=== PATIENT | male | born 1960 | race Caucasian/White ===

== ENCOUNTER 2017-07-02 15:21 | Observation (INO) | payer OTHER ==
[2017-07-02 16:00] LABS: Absolute Lymphocytes (CBC) 2.1 K/uL (0.7-4.9); Absolute Monocytes 1.5 K/uL (0.1-1.3); Absolute Neutrophil 11.3 K/uL (1.8-8.0); Basophils % 0.7 % (0-1.3); Eosinophils % 0.4 % (0-4.4); Hematocrit 44.9 % (39.6-49.0); Lymphocytes % 14.1 % (15.3-44.8); MCV 90.3 fL (80-100); MPV 9.2 fL (7.6-11.3); Monocytes % 10.1 % (3.3-12.3); RBC Red Blood Cell Count 4.97 M/uL (4.33-5.43)
[2017-07-02 16:05] LABS: Potassium 3.8 mEq/L (3.6-5.0)
[2017-07-02] MEDS ORDERED: NA CHLORIDE 0.9% 1,000 ML ONE (16:05)
[2017-07-02 16:08] LABS: Magnesium 1.7 mg/dL (1.8-2.5)
[2017-07-02 16:16] LABS: CKMB Creatine Kinase MB 2.8 ng/ml (0.3-4.0)
--- NOTE | 2017-07-02 16:29 | ER ---
Nurse's Notes [facility] Name: Chris Sweeney Age: 57 yrs Sex: Male : 1960 Arrival Date: 07/02/2017 Time: 15:23 Bed 18 Private MD: Donald Rosario Diagnosis: Dehydration;Acute kidney failure;Rhabdomyolysis Presentation: 07/02 15:27 Presenting complaint: Patient states: I have been doing a lot of yard work and I have la1 been trying to keep up with drinking water, I have been drinking 10-15 bottles of water a day but no sports drinks or anything, pt reports body cramps, vomiting. Transition of care: patient was not received from another setting of care. Onset of symptoms was July 02, 2017. Care prior to arrival: None. 15:27 Method Of Arrival: Wheelchair la1 15:27 Acuity: HOLLY 3 la1 Historical: - Allergies: 15:28 No Known Allergies; la1 - PMHx: 15:28 Diabetes - NIDDM; Hypertension; la1 - Immunization history:: Adult Immunizations up to date. - Social history:: Smoking status: Patient/guardian denies using tobacco. Screenin:48 Abuse screen: Denies threats or abuse. Denies injuries from another. Nutritional iw screening: No deficits noted. Tuberculosis screening: No symptoms or risk factors identified. Fall Risk IV access (20 points). Assessment: 15:50 General: Appears in no apparent distress. Behavior is calm, cooperative. Pain: iw Complains of pain in back Quality of pain is described as crampy. Neuro: Level of Consciousness is awake, alert, obeys commands, Oriented to person, place, time, situation, Moves all extremities. Full function. Cardiovascular: Capillary refill < 3 seconds in bilateral fingers Patient's skin is warm and dry. Rhythm is sinus tachycardia. Respiratory: Respiratory effort is even, unlabored, Respiratory pattern is regular, symmetrical. GI: Abdomen is non-distended, Reports vomiting. Derm: Skin is normal. Musculoskeletal: Range of motion: intact in all extremities. 16:50 Reassessment: Patient appears in no apparent distress at this time. Patient and/or em family updated on plan of care and expected duration. Pain level reassessed. Patient is alert, oriented x 3, equal unlabored respirations, skin warm/dry/pink. Patient states feeling better. Vital Signs: 15:29 BP 93 / 68; Pulse 117; Resp 19; Temp 98.2(TE); Pulse Ox 100% on R/A; Weight 120.2 kg; la1 Height 5 ft. 11 in. (180.34 cm); 15:52 BP 131 / 72; Pulse 100; Resp 18; Pulse Ox 97% on R/A; em 16:19 BP 113 / 71; Pulse 98; Resp 20; Pulse Ox 96% on R/A; em 17:16 BP 116 / 74; Pulse 94; Resp 18; Pulse Ox 99% on R/A; em 15:29 Body Mass Index 36.96 (120.20 kg, 180.34 cm) la1 ED Course: 15:23 Patient arrived in ED. as 15:24 [facility] is Private Physician. as 15:28 Triage completed. la1 15:29 Arm band placed on left wrist. la1 15:30 Greg Nair LVN is Primary Nurse. em 15:31 Alejandrina Bell FNP-C is PHCP. kb 15:31 Sukumar Cabrales MD is Attending Physician. kb 15:48 Initial lab(s) drawn, by me, sent to lab. Inserted saline lock: 20 gauge in right iw antecubital area, using aseptic technique. Blood collected. 15:48 EKG done, by ED staff, reviewed by Sukumar Cabrales MD. em1 15:57 Patient has correct armband on for positive identification. Bed in low position. Call em light in reach. Side rails up X2. 16:29 Shaw Henriquez MD is Hospitalizing Provider. kb 17:16 No provider procedures requiring assistance completed. Patient admitted, IV remains in em place. Administered Medications: 15:47 Drug: NS 0.9% 1000 ml Route: IV; Rate: 1000 ml; Site: right antecubital; iw 17:09 Follow up: IV Status: Completed infusion; IV Intake: 1000ml em 16:58 Drug: NS 0.9% 1000 ml Route: IV; Rate: 1000 ml; Site: right antecubital; em 17:09 Follow up: IV Status: Infusion continued upon admission em 16:59 Drug: Magnesium Sulfate 1 grams Route: IVPB; Infused Over: 1 hrs; Site: right em antecubital; 17:10 Follow up: IV Status: Infusion continued upon admission em 17:05 Drug: NS 0.9% 1000 ml Route: IV; Rate: 125 ml/hr; Site: right antecubital; em 17:09 Follow up: IV Status: Infusion continued upon admission em 17:06 Drug: Tylenol 1000 mg Route: PO; em 17:15 Follow up: Response: No adverse reaction em Intake: 17:09 IV: 1000ml; Total: 1000ml. em Outcome: 16:29 Decision to Hospitalize by Provider. kb 17:16 Admitted to Med/surg accompanied by tech, via wheelchair, room 213, with chart, Report em called to KEVAN Medley 17:16 Condition: good 17:16 Instructed on the need for admit, Demonstrated understanding of instructions. 17:18 Patient left the ED. em Signatures: Alejandrina Bell, PACKAGING TECHNICIAN-C PACKAGING TECHNICIAN-Ckb Greg Nair, [place] FSCM DEVELOPER [employer] FSCM DEVELOPER em Rody Hoffman as Spring Bassett RN RN Dalton, Markell em Jamil Varner RN RN la1 Corrections: (The following items were deleted from the chart) 15:52 15:50 GI: Abdomen is non-distended, iw
--- NOTE | 2017-07-02 16:29 | EDPHYS ---
Physician Documentation [facility] Name: Chris Sweeney Age: 57 yrs Sex: Male : 1960 Arrival Date: 07/02/2017 Time: 15:23 Bed 18 Private MD: Abraham, [facility] ED Physician Sukumar Cabrales HPI: 07/02 15:42 This 57 yrs old Male presents to ER via Wheelchair with complaints of Low kb Blood Pressure, Cramping. 15:42 The patient presents with dizziness, generalized weakness. Onset: The symptoms/episode kb began/occurred yesterday. Context: occurred at home, just prior to the episode the patient experienced no apparent symptoms. Modifying factors: The symptoms are alleviated by nothing, the symptoms are aggravated by nothing. Associated signs and symptoms: The patient has no apparent associated signs or symptoms. Severity of symptoms: At their worst the symptoms were moderate in the emergency department the symptoms are unchanged. Patient's baseline: Neuro: alert and fully oriented, Motor: no deficits, Ambulation: walks without assistance, Speech: normal. The patient has experienced similar episodes in the past, multiple times, and the symptoms today are exactly the same. The patient has not recently seen a physician. Pt c/o dizziness, low bp (81/41 with home device), muscle cramps, and nausea that started yesterday. States he has been working in the yard for the last couple of days and has been trying to keep up with fluids, but get dehydrated quickly. States this has happened multiple time and gets better with IV fluids. Decreased urination yesterday, despite drinking 10+ bottles of water. Has not been sweating much either. Took bp meds as prescribed this morning, including hctz/lisinopril. . Historical: - Allergies: 15:28 No Known Allergies; la1 - PMHx: 15:28 Diabetes - NIDDM; Hypertension; la1 - Immunization history:: Adult Immunizations up to date. - Social history:: Smoking status: Patient/guardian denies using tobacco. ROS: 15:38 Constitutional: Negative for fever, chills, and weight loss, Cardiovascular: Negative kb for chest pain, palpitations, and edema, Respiratory: Negative for shortness of breath, cough, wheezing, and pleuritic chest pain, Back: Negative for injury and pain, MS/Extremity: Negative for injury and deformity, Skin: Negative for injury, rash, and discoloration. 15:38 Abdomen/GI: Positive for nausea, Negative for abdominal pain, vomiting, diarrhea, constipation, abdominal cramps, abdominal distension, anorexia. 15:38 : Positive for decreased urination. 15:42 Neuro: Positive for dizziness. kb Exam: 15:38 Constitutional: This is a well developed, well nourished patient who is awake, alert, kb and in no acute distress. Head/Face: Normocephalic, atraumatic. ENT: Nares patent. No nasal discharge, no septal abnormalities noted. Tympanic membranes are normal and external auditory canals are clear. Oropharynx with no redness, swelling, or masses, exudates, or evidence of obstruction, uvula midline. Mucous membranes moist. Neck: Trachea midline, no thyromegaly or masses palpated, and no cervical lymphadenopathy. Supple, full range of motion without nuchal rigidity, or vertebral point tenderness. No Meningismus. Chest/axilla: Normal chest wall appearance and motion. Nontender with no deformity. No lesions are appreciated. Cardiovascular: Regular rate and rhythm with a normal S1 and S2. No gallops, murmurs, or rubs. Normal PMI, no JVD. No pulse deficits. Respiratory: Lungs have equal breath sounds bilaterally, clear to auscultation and percussion. No rales, rhonchi or wheezes noted. No increased work of breathing, no retractions or nasal flaring. Abdomen/GI: Soft, non-tender, with normal bowel sounds. No distension or tympany. No guarding or rebound. No evidence of tenderness throughout. Skin: Warm, dry with normal turgor. Normal color with no rashes, no lesions, and no evidence of cellulitis. MS/ Extremity: Pulses equal, no cyanosis. Neurovascular intact. Full, normal range of motion. Neuro: Awake and alert, GCS 15, oriented to person, place, time, and situation. Cranial nerves II-XII grossly intact. Motor strength 5/5 in all extremities. Sensory grossly intact. Cerebellar exam normal. Normal gait. Vital Signs: 15:29 BP 93 / 68; Pulse 117; Resp 19; Temp 98.2(TE); Pulse Ox 100% on R/A; Weight 120.2 kg; la1 Height 5 ft. 11 in. (180.34 cm); 15:52 BP 131 / 72; Pulse 100; Resp 18; Pulse Ox 97% on R/A; em 16:19 BP 113 / 71; Pulse 98; Resp 20; Pulse Ox 96% on R/A; em 17:16 BP 116 / 74; Pulse 94; Resp 18; Pulse Ox 99% on R/A; em 15:29 Body Mass Index 36.96 (120.20 kg, 180.34 cm) la1 MDM: 15:31 Patient medically screened. kb 15:38 Data reviewed: vital signs, nurses notes. Data interpreted: Pulse oximetry: on room air kb is 100 %. Interpretation: normal. 16:28 Counseling: I had a detailed discussion with the patient and/or guardian regarding: the kb historical points, exam findings, and any diagnostic results supporting the discharge/admit diagnosis, lab results, the need for further work-up and treatment in the hospital. Physician consultation: Shaw Henriquez MD was contacted at 16:28, regarding admission, to the telemetry unit. patient's condition, and will see patient in ED, shortly. 07/02 15:37 Order name: CBC with Diff; Complete Time: 16:06 kb 07/02 15:37 Order name: Basic Metabolic Panel; Complete Time: 16:21 kb 07/02 15:37 Order name: CPK; Complete Time: 16:21 kb 07/02 15:37 Order name: Ckmb; Complete Time: 16:21 kb 07/02 15:37 Order name: Magnesium; Complete Time: 16:21 kb 07/02 16:35 Order name: CBC with Automated Diff EDMS 07/02 16:35 Order name: CBC with Automated Diff EDMS 07/02 16:35 Order name: Comprehensive Metabolic Panel EDMS 07/02 16:35 Order name: Comprehensive Metabolic Panel EDMS 07/02 16:35 Order name: Creatine Phosphokinase EDMS 07/02 16:35 Order name: Creatine Phosphokinase EDMS 07/02 16:35 Order name: Creatine Phosphokinase EDMS 07/02 16:35 Order name: Creatine Phosphokinase EDMS 07/02 15:37 Order name: EKG; Complete Time: 15:37 kb 07/02 15:37 Order name: EKG - Nurse/Tech; Complete Time: 15:47 kb 07/02 15:37 Order name: Cardiac monitoring; Complete Time: 15:47 kb 07/02 15:37 Order name: IV Saline Lock; Complete Time: 15:47 kb 07/02 15:37 Order name: Labs collected and sent; Complete Time: 15:47 kb 07/02 15:37 Order name: O2 Per Protocol; Complete Time: 15:47 kb 07/02 15:37 Order name: O2 Sat Monitoring; Complete Time: 15:47 kb 07/02 15:37 Order name: Urine Dipstick-Ancillary (obtain specimen); Complete Time: 17:16 kb 07/02 16:35 Order name: CONS Physician Consult EDMS 07/02 16:35 Order name: Renal EDMS Administered Medications: 15:47 Drug: NS 0.9% 1000 ml Route: IV; Rate: 1000 ml; Site: right antecubital; iw 17:09 Follow up: IV Status: Completed infusion; IV Intake: 1000ml em 16:58 Drug: NS 0.9% 1000 ml Route: IV; Rate: 1000 ml; Site: right antecubital; em 17:09 Follow up: IV Status: Infusion continued upon admission em 16:59 Drug: Magnesium Sulfate 1 grams Route: IVPB; Infused Over: 1 hrs; Site: right em antecubital; 17:10 Follow up: IV Status: Infusion continued upon admission em 17:05 Drug: NS 0.9% 1000 ml Route: IV; Rate: 125 ml/hr; Site: right antecubital; em 17:09 Follow up: IV Status: Infusion continued upon admission em 17:06 Drug: Tylenol 1000 mg Route: PO; em 17:15 Follow up: Response: No adverse reaction em Disposition: 07/02/17 16:29 Hospitalization ordered by Shaw Henriquez for Observation. Preliminary diagnosis are Dehydration, Acute kidney failure, Rhabdomyolysis. - Bed requested for Telemetry/MedSurg (observation). - Status is Observation. em - Condition is Stable. - Problem is new. - Symptoms are unchanged. UTI on Admission? No Addendum: 08/05/2017 18:48 Co-signature as Attending Physician, Sukumar Cabrales MD I agree with the assessment and k dr plan of care. Signatures: Dispatcher [employer] EDIA Alejandrina Bell, CHIDI-C CHIDI-Sukumar Reyes MD MD [facility] Greg Nair, DOG LICENSE OFFICER SUPERVISOR DOG LICENSE OFFICER SUPERVISOR em Spring Bassett, KEVAN MATHUR iw Jamil Varner RN RN la1 Alexandrea Lipscomb RN RN df Corrections: (The following items were deleted from the chart) 07/02 15:42 15:38 Constitutional: Negative for fever, chills, and weight loss, Cardiovascular: kb Negative for chest pain, palpitations, and edema, Respiratory: Negative for shortness of breath, cough, wheezing, and pleuritic chest pain, Back: Negative for injury and pain, MS/Extremity: Negative for injury and deformity, Skin: Negative for injury, rash, and discoloration, Neuro: Negative for headache, weakness, numbness, tingling, and seizure, kb 17:00 16:29 Hospitalization Ordered by Shaw Henriquez MD for Observation. Preliminary diagnosis df is Dehydration; Acute kidney failure; Rhabdomyolysis. Bed requested for Telemetry/MedSurg (observation). Status is Observation. Condition is Stable. Problem is new. Symptoms are unchanged. UTI on Admission? No. kb 17:18 17:00 07/02/2017 16:29 Hospitalization Ordered by Shaw Henriquez MD for Observation. em Preliminary diagnosis is Dehydration; Acute kidney failure; Rhabdomyolysis. Bed requested for Telemetry/MedSurg (observation). Status is Observation. Condition is Stable. Problem is new. Symptoms are unchanged. UTI on Admission? No. df
[2017-07-02] MEDS ORDERED: ONDANSETRON 4 MG/2 ML VIAL IV PRN (16:30)
[2017-07-02] MEDS ORDERED: MAGNESIUM SULFATE 1 gm IVPB 1 GM/100 ML BAG IV ONE (17:05)
[2017-07-02] MEDS ORDERED: NA CHLORIDE 0.9% 2,000 ML ONE (17:05)
[2017-07-02] MEDS ORDERED: ACETAMINOPHEN 500 MG TAB ONE (17:16)
[2017-07-02] MEDS ORDERED: D50W 25 GM/50 ML SYRINGE IV PRN (17:20)
[2017-07-02] MEDS ORDERED: GLUCAGON 1 MG/VIAL IM PRN (17:20)
[2017-07-02] MEDS: D5W 1,000 ML with NA BICARB 8.4% 50 MEQ IV SCH ×2 (18:44)
[2017-07-02 18:56] LABS: Urine Appearance CLOUDY; Urine Bilirubin NEGATIVE (NEG); Urine Blood NEGATIVE (NEG); Urine Color YELLOW; Urine Glucose NEGATIVE (NEG); Urine Protein NEGATIVE (NEG); Urine Specific Gravity 1.015 (1.005-1.030); Urine Urobilinogen 0.2 mg/dL (0.2-1.0); Urine pH 5.5 (5.0-7.0)
[2017-07-02 18:57] LABS: Urine Microscopic Reflex NO UMIC
[2017-07-02] MEDS: INSULIN -REGULAR HUMAN 50 UNIT/0.5 ML ML SQ SCH (20:53)
[2017-07-02] MEDS: ACETAMINOPHEN 500 MG TAB PO PRN (20:55)
--- NOTE | 2017-07-02 22:11 | HP ---
Date of Admission: 07/02/2017 Chief Complaint: Dehydration. Primary Care Physician: ANTIONETTE. The patient also sees Dr. Moran. History Of Present Illness: The patient is a 57-year-old male with past medical history of diabetes, non-insulin dependent; hypertension; GERD; hyperlipidemia; who was in his usual state of health until a couple days prior to admission when the patient started working on his house outside in the heat. He has been aching and renovating. He states that he keep hydrated, however, in the past has had issues with dehydration. The patient has been drinking 10- 15 bottles per day of water. The patient started feeling muscle cramps and dehydration. He felt that his symptoms were similar to symptoms that he has had previously when he was in the and recognized his hydration, therefore came into the ER. His symptoms are constant, moderate, and progressively worsening. Upon arrival, his workup showed a creatinine of 2.43. His CPK level was 581. The patient was bolused with 2 L of IV normal saline and was referred for admission. When the patient was seen in the ER, he was awake, alert, oriented x3, in some mild distress. Past Medical History: Diabetes mellitus type 2, non-insulin dependent; hypertension; gastroesophageal reflux disease; diverticulitis, hyperlipidemia. Past Surgical History: Partial colon resection, vasectomy with reversal. Medications: Reviewed. Allergies: NO KNOWN DRUG ALLERGIES. Social History: The patient denies any tobacco use, illicit drug use. The patient does drink beer occasionally. The patient is a retired [employer] . Family History: Positive for coronary artery disease in both parents. Review of Systems: 11-point system reviewed, negative except as per HPI. Physical Examination: Vital Signs: Temperature 98.2, heart rate 117, blood pressure 93/68, respirations 19, O2 saturation 100% on room air. General: Awake, alert, oriented x3, in some mild distress. Somewhat ill- appearing male. HEENT: Normocephalic, atraumatic. PERRLA. EOMI. Dry mucous membranes. Oropharynx is clear. Regular dentition. Conjunctiva anicteric. Neck: Supple. No JVD. Trachea midline. CV: S1, S2. Sinus tachycardia. Peripheral pulses present bilaterally. No murmurs. Respiratory: Moving air well bilaterally. No wheezing. No stridor. No use of accessory muscles. Gastrointestinal: Abdomen is soft, nontender, nondistended. Positive bowel sounds. Extremities: No clubbing, cyanosis, or edema. No calf tenderness. Skin: No rashes. Normal skin turgor. Neurologic: Cranial nerves 2 through 12 intact grossly, 5/5 bilateral upper and lower extremity strength. Speech is normal. Sensation intact to light touch. Psych: Mood is okay. Affect is full. Insight and judgment are good. Laboratory Data: Sodium 133, potassium 3.8, chloride 95, CO2 25. BUN 23, creatinine 2.43, glucose 147, calcium 10.2, magnesium 1.7. CK 581. WBC 15.1, H and H 15.4 and 44.9, platelets 342, neutrophils 74%. Assessment And Plan: A 57-year-old male with; 1. Acute kidney injury. 2. Acute rhabdomyolysis. 3. Neutrophilic leukocytosis. 4. Hypomagnesemia. 5. Essential hypertension. 6. Diabetes mellitus type 2, non-insulin requiring. 7. Mixed hyperlipidemia. 8. History of diverticulitis, status post partial colon resection. 9. Acute dehydration. Continue with IV fluids. Plan: Admit the patient to Med-Surg, place as observation. We will place on IV fluids and monitor creatinine and replace magnesium. We will consult Nephrology. /MARY JO Voice ID: [id number] MTDD
[2017-07-03] MEDS: D5W 1,000 ML with NA BICARB 8.4% 50 MEQ IV SCH ×4 (02:11→11:22)
[2017-07-03 05:15] LABS: Absolute Lymphocytes (CBC) 2.6 K/uL (0.7-4.9); Absolute Monocytes 0.9 K/uL (0.1-1.3); Absolute Neutrophil 3.7 K/uL (1.8-8.0); Basophils % 0.6 % (0-1.3); Eosinophils % 2.8 % (0-4.4); Hematocrit 39.3 % (39.6-49.0); Lymphocytes % 34.3 % (15.3-44.8); MCH 31.6 pg (27.0-35.0); MCV 89.8 fL (80-100); MPV 9.2 fL (7.6-11.3); RBC Red Blood Cell Count 4.38 M/uL (4.33-5.43)
[2017-07-03 05:41] LABS: Albumin 3.6 g/dL (3.2-5.5); Bilirubin Total 1.1 mg/dL (0.3-1.2); Magnesium 1.8 mg/dL (1.8-2.5); Potassium 3.7 mEq/L (3.6-5.0)
--- NOTE | 2017-07-03 07:08 | EKG ---
Test Date: 2017-07-02 Test Time: 15:40:38 University Dean: NEIL MEASUREMENT RESULTS: Intervals: Rate: 103 VA: 130 QRSD: 88 QT: 348 QTc: 455 [place]: P: 67 VA: 130 QRS: 56 T: 67 INTERPRETIVE STATEMENTS: Sinus tachycardia Otherwise normal ECG Compared to ECG 10/06/2014 12:52:54 No significant changes Electronically Signed On 07-03-17 07:07:39 CDT by Eder Hewitt
[2017-07-03] MEDS: INSULIN -REGULAR HUMAN 50 UNIT/0.5 ML ML SQ SCH ×2 (07:30→11:23)
[2017-07-03] MEDS: ACETAMINOPHEN 500 MG TAB PO PRN ×2 (07:59→11:53)
[2017-07-03] MEDS ORDERED: ASPIRIN 81 MG CHEWABLE TABLET PO SCH (09:00)
[2017-07-03] MEDS ORDERED: SERTRALINE HCL 50 MG TAB PO SCH (09:00)
[2017-07-03] MEDS ORDERED: NA CHLORIDE 0.9% 1,000 ML IV SCH (13:00)
--- NOTE | 2017-07-03 15:49 | P.CNS ---
Date of Consult: 07/03/17 Reason for Consult: FINA Requesting Physician: Shaw Henriquez Chief Complaint: Malaise History of Present Illness: History Of Present Illness: The patient is a 57-year-old male with past medical history of diabetes, non-insulin dependent; hypertension; GERD; hyperlipidemia; who was in his usual state of health until a couple days prior to admission when the patient started working on his house outside in the heat. He has been aching and renovating. He states that he keep hydrated, however, in the past has had issues with dehydration. The patient has been drinking 10- 15 bottles per day of water. The patient started feeling muscle cramps and dehydration. He felt that his symptoms were similar to symptoms that he has had previously when he was in the and recognized his hydration, therefore came into the ER. His symptoms are constant, moderate, and progressively worsening. Upon arrival, his workup showed a creatinine of 2.43. His CPK level was 581. The patient was bolused with 2 L of IV normal saline and was referred for admission. When the patient was seen in the ER, he was awake, alert, oriented x3, in some mild distress. 15:42 This 57 yrs old Male presents to ER via Wheelchair with complaints of Low kb Blood Pressure, Cramping. 15:42 The patient presents with dizziness, generalized weakness. Onset: The symptoms/episode kb began/occurred yesterday. Context: occurred at home, just prior to the episode the patient experienced no apparent symptoms. Modifying factors: The symptoms are alleviated by nothing, the symptoms are aggravated by nothing. Associated signs and symptoms: The patient has no apparent associated signs or symptoms. Severity of symptoms: At their worst the symptoms were moderate in the emergency department the symptoms are unchanged. Patient's baseline: Neuro: alert and fully oriented, Motor: no deficits, Ambulation: walks without assistance, Speech: normal. The patient has experienced similar episodes in the past, multiple times, and the symptoms today are exactly the same. The patient has not recently seen a physician. Pt c/o dizziness, low bp (81/41 with home device), muscle cramps, and nausea that started yesterday. States he has been working in the yard for the last couple of days and has been trying to keep up with fluids, but get dehydrated quickly. States this has happened multiple time and gets better with IV fluids. Decreased urination yesterday, despite drinking 10+ bottles of water. Has not been sweating much either. Took bp meds as prescribed this morning, including hctz/lisinopril. Allergies No Known Drug Allergies Allergy (Verified 07/02/17 17:42) Unknown Home medications list reviewed: Yes Home Medications: Aspirin 1 tab PO DAILY 07/02/17 Glipizide [Glipizide ER] 0.5 tab PO DAILY 07/02/17 Lisinopril/Hydrochlorothiazide [Zestoretic 20-25 mg Tablet] 1 tab PO DAILY 07/02 Metformin ER [Glucophage ER*] 1 tab PO DAILY 07/02/17 Multivitamin [Multivitamins] 1 cap PO DAILY 07/02/17 Omeprazole 1 tab PO DAILY 07/02/17 Sertraline [Zoloft*] 1 tab PO DAILY 07/02/17 - Past Medical/Surgical History Diabetic: Yes -: HTN -: NIDDM -: Barretts esophagus -: Partial Colon removal -: Vasectomy -: Vasectomy reversal x3 -: Sinus sx -: Hernia repair - Family History Father Medical History: Heart disease - Social History Smoking Status: Former smoker Alcohol use: Yes CD- Drugs: No Caffeine use: Yes Place of Residence: Home Review of Systems 10-point ROS is otherwise unremarkable General: Weakness, Malaise Musculoskeletal: Back Pain Physical Examination Temp Pulse Resp BP Pulse Ox 99.7 F 88 18 130/76 98 07/03/17 12:00 07/03/17 12:00 07/03/17 12:00 07/03/17 12:00 07/03/17 12:00 General: Alert, Oriented x3, Cooperative HEENT: Atraumatic, Mucous membr. moist/pink Neck: Supple Respiratory: Clear to auscultation bilaterally, Normal air movement Cardiovascular: No edema, Regular rate/rhythm, No rubs Gastrointestinal: Soft and benign, Non-distended, No guarding Musculoskeletal: No clubbing, No contractures Integumentary: No rashes, No cyanosis Neurological: Normal speech Laboratory Data (last 24 hrs) 07/02/17 15:40: Sodium 133 L, Potassium 3.8, BUN 23 H, Creatinine 2.43 H, Glucose 147 H, Magnesium 1.7 L 04/01/18 15:40: WBC 15.1 H, Hgb 15.4, Hct 44.9, Plt Count 342 Conclusions/Impression: A/ FINA/ CKD III in the setting of diuretics and excessive sweating, improving with IVF. Hyponatremia. DM II with CKD. Hypomagnesemia. Rhabdomyolysis. P/ Continue current POC and Medications. Change IVF to NS. Counseled regarding adequate electrolyte replacement in the setting of excessive diaphoresis. No NSAIDs. AM labs. Daily weight. Thank you kindly for the consultation. Case discussed with Dr. Henriquez. Possible discharge today; may restart home medications.
--- NOTE | 2017-07-04 02:49 | DS ---
Date of Discharge: 07/03/2017 Consultants: Shahab Philip DO, Nephrology. Admitting Diagnoses: 1.Acute kidney injury. 2.Rhabdomyolysis. 3.Acute dehydration. 4.Neutrophilic leukocytosis. 5.Hypomagnesemia. 6.Essential hypertension. 7.Diabetes mellitus type 2, non-insulin requiring. 8.Mixed hyperlipidemia. 9.History of diverticulitis, status post partial colon resection. Discharge Diagnoses: 1.Acute kidney injury, likely secondary to prerenal azotemia and rhabdomyolysis, improving. 2.Acute rhabdomyolysis. CK levels trending down. 3.Neutrophilic like leukocytosis, resolved. 4.Hypomagnesemia, replaced. 5.Essential hypertension, stable. 6.Diabetes mellitus type 2 with hyperglycemia without long-term use of insulin, stable. 7.Hyperlipidemia. 8.Acute dehydration, resolved. 9.History of diverticulitis, status post partial colon resection. Hospital Course: The patient is a 57-year-old male, who had been working outside, renovating his [employer] and became dehydrated. The patient was found to have rhabdomyolysis with elevated CPK and creatin ine levels. The patient was hydrated aggressively and his labs improved. His magnesium was replaced . Creatinine came down to 1.29. His CPK level improved to 388. White count normalized. The patien t's UA was negative. The patient was evaluated by Nephrology and was then cleared for discharge. Th e patient was tolerating his diet, ambulating well. He was instructed to remain indoors in a cool en vironment to avoid any excessive strenuous activity for the next few days and to put a hold on his ho use renovations, at least until the end of the week. The patient was understanding. at the bed side. The patient was then discharged home in a stable condition. Activity: No strenuous activity. May return to work. 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 Diet: Heart healthy. Followup: Follow up with primary care physician in 2-3 days. 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 Chago bradford, per his recommendation. Return to ER for worsening condition. Discharge Physical Examination: General: Awake, alert, oriented, no acute distress. CV: S1, S2. No murmurs. Respiratory: Moving air well bilaterally. Abdomen: Soft, nontender, nondistended. Positive bowel sounds. Extremities: No clubbing, cyanosis, or edema. Neurologic: Nonfocal. SA/MODL Voice ID: [id number] Report ID: [id number]
[2017-07-04] MEDS ORDERED: PANTOPRAZOLE 40MG TABLET PO SCH (06:30)
[2017-07-04] MEDS ORDERED: GLIPIZIDE S.A. 5 MG TAB PO SCH (08:00)
== END 2017-07-03 15:18 | disposition home or self-care (01) ==
LOC: ER 15:21 → ERHOLD 16:29 → 2ND 17:09
PROVIDERS: ADMIT Family Medicine; ATTEND Family Medicine
DX: E83.42 Hypomagnesemia; Z79.82 Long term (current) use of aspirin; D72.828 Other elevated white blood cell count; E86.0 Dehydration; E78.5 Hyperlipidemia, unspecified; K21.9 Gastro-esophageal reflux disease without esophagitis; M62.82 Rhabdomyolysis; N17.9 Acute kidney failure, unspecified; I10 Essential (primary) hypertension; E11.65 Type 2 diabetes mellitus with hyperglycemia; E87.1 Hypo-osmolality and hyponatremia
CPT/HCPCS: 36415; 80048; 80053; 81003; 82550 ×2; 82553; 82962 ×3; 83735 ×2; 85025 ×2; 93005; 94760; 96361; 96374; 99285; G0378 ×2; J3475; J7030 ×3

== ENCOUNTER 2017-08-18 18:50 | Emergency (ER) | payer OTHER ==
[2017-08-18] MEDS ORDERED: LIDOCAINE 1% 20 ML MDV ONE (20:47)
--- NOTE | 2017-08-18 20:52 | RAD REPORT ---
EXAM DESCRIPTION: RAD - Hand Left 3 View - 08/18/2017 8:37 pm CLINICAL HISTORY: Laceration to third digit. COMPARISON: None. FINDINGS: Laceration is noted involving the third digit. No fracture or foreign body seen.
--- NOTE | 2017-08-18 21:24 | ER ---
Nurse's Notes [facility] Name: Chris Sweeney Age: 57 yrs Sex: Male : 1960 Arrival Date: 08/18/2017 Time: 18:52 Bed Treatment Private MD: Diagnosis: Laceration without foreign body of left middle finger without damage to nail Presentation: 08/18 19:12 Presenting complaint: Patient states: "I stepped on a strip of mariela clippings and lk1 jumped with a hedge clipper in my hand and cut my finger (left middle finger).". Transition of care: patient was not received from another setting of care. Onset of symptoms was August 18, 2017 at 17:30. Initial Sepsis Screen: Does the patient meet any 2 criteria? No. Patient's initial sepsis screen is negative. Does the patient have a suspected source of infection? No. Patient's initial sepsis screen is negative. Care prior to arrival: None. 19:12 Method Of Arrival: Ambulatory lk1 19:12 Acuity: HOLLY 4 lk1 Triage Assessment: 19:16 General: Appears in no apparent distress. Behavior is calm, cooperative, appropriate lk1 for age. Pain: Complains of pain in right hand Pain currently is 3 out of 10 on a pain scale. Historical: - Allergies: 19:16 No Known Drug Allergies; lk1 - PMHx: 19:16 Diabetes - NIDDM; Hypertension; Renal Disease; lk1 - PSHx: 19:16 Vasectomy; colon resection; Hernia repair; lk1 - Immunization history:: Adult Immunizations up to date, Last tetanus immunization: up to date. - Social history:: Smoking status: Patient/guardian denies using tobacco. Screenin:47 Abuse screen: Denies threats or abuse. Denies injuries from another. Nutritional aj1 screening: No deficits noted. Tuberculosis screening: No symptoms or risk factors identified. 21:51 Fall Risk None identified. aj1 Assessment: 19:47 General: Appears in no apparent distress. uncomfortable, Behavior is calm, cooperative, aj1 appropriate for age. Pain: Complains of pain in right hand. Neuro: Level of Consciousness is awake, alert, obeys commands, Oriented to person, place, time, situation, Speech is normal, Facial symmetry appears normal. Cardiovascular: Patient's skin is warm and dry. Respiratory: Airway is patent Respiratory effort is even, unlabored, Respiratory pattern is regular, symmetrical. GI: No signs and/or symptoms were reported involving the gastrointestinal system. : No signs and/or symptoms were reported regarding the genitourinary system. EENT: No signs and/or symptoms were reported regarding the EENT system. Derm: Skin is pink, warm \\T\\ dry. normal. Musculoskeletal: Range of motion: intact in all extremities. Injury Description: Laceration sustained to palmar aspect of distal phalanx of right little finger, palmar aspect of proximal phalanx of right little finger, palmar aspect of distal phalanx of right ring finger, palmar aspect of proximal phalanx of right ring finger, palmar aspect of distal phalanx of right middle finger, palmar aspect of proximal phalanx of right middle finger, palmar aspect of distal phalanx of right index finger and palmar aspect of proxima; phalanx of right index finger is bleeding moderately. 20:35 Reassessment: Patient appears in no apparent distress at this time. No changes from aj1 previously documented assessment. Patient and/or family updated on plan of care and expected duration. Pain level reassessed. Patient is alert, oriented x 3, equal unlabored respirations, skin warm/dry/pink. 21:50 Reassessment: Patient appears in no apparent distress at this time. No changes from aj1 previously documented assessment. Patient and/or family updated on plan of care and expected duration. Pain level reassessed. Patient is alert, oriented x 3, equal unlabored respirations, skin warm/dry/pink. Vital Signs: 19:16 BP 132 / 82; Pulse 92; Resp 16; Temp 98.4(TE); Pulse Ox 98% on R/A; Weight 123.38 kg lk1 (R); Height 5 ft. 11 in. (180.34 cm) (R); Pain 3/10; 19:16 Body Mass Index 37.94 (123.38 kg, 180.34 cm) lk1 ED Course: 18:52 Patient arrived in ED. sb2 19:14 Triage completed. lk1 19:18 Arm band placed on right wrist. lk1 19:21 Jeanna Saldana, RN is Primary Nurse. aj1 19:47 Patient has correct armband on for positive identification. aj1 19:47 No provider procedures requiring assistance completed. aj1 20:11 Jose Lewis PA is PHCP. cp 20:11 Jose Garg MD is Attending Physician. cp 20:33 X-ray completed. Portable x-ray completed in exam room. Patient tolerated procedure bb2 well. 20:34 XRAY Hand LEFT 3 View In Process Unspecified. EDMS 20:35 Wound care: to laceration located on right hand was cleaned with Hibiclens, irrigated aj1 with normal saline, dressed with 4X4s, Patient tolerated well. 21:50 Patient did not have IV access during this emergency room visit. Wound care: to aj1 laceration was cleaned with soap and water, dressed with 4X4s, Patient tolerated well. Administered Medications: 21:00 Drug: Lidocaine (1 %) 10 ml {Note: by MYESHA Bah.} Volume: 20 ml; Route: Infiltration; aj1 21:49 Drug: KeFLEX 500 mg Route: PO; aj1 21:50 Follow up: Response: No adverse reaction aj1 Outcome: 21:23 Discharge ordered by MD. cp 21:51 Discharged to home ambulatory. aj1 21:51 Condition: good 21:51 Discharge instructions given to patient, Instructed on discharge instructions, follow up and referral plans. medication usage, Demonstrated understanding of instructions, follow-up care, medications, Prescriptions given X 1. 21:52 Patient left the ED. aj1 Signatures: Dispatcher [employer] EDMS Jeanna Saldana, RN RN aj1 Jose Lewis PA PA cp Kluge, Leah RN RN lk1 Sandra Serra bb2 Jasmyne Haque sb2
--- NOTE | 2017-08-18 21:24 | EDPHYS ---
Physician Documentation [facility] Name: Chris Sweeney Age: 57 yrs Sex: Male : 1960 Arrival Date: 08/18/2017 Time: 18:52 Bed Treatment Private MD: ED Jose Angel HPI: 08/18 20:25 This 57 yrs old Male presents to ER via Ambulatory with complaints of LAC TO cp FINGER. Historical: - Allergies: 19:16 No Known Drug Allergies; lk1 - PMHx: 19:16 Diabetes - NIDDM; Hypertension; Renal Disease; lk1 - PSHx: 19:16 Vasectomy; colon resection; Hernia repair; lk1 - Immunization history:: Adult Immunizations up to date, Last tetanus immunization: up to date. - Social history:: Smoking status: Patient/guardian denies using tobacco. ROS: 20:30 Constitutional: Negative for body aches, chills, fever, poor PO intake. cp 20:30 Eyes: Negative for injury, pain, redness, and discharge. cp 20:30 Cardiovascular: Negative for chest pain. 20:30 Respiratory: Negative for cough, shortness of breath, wheezing. 20:30 Skin: Positive for laceration(s), of the left hand. 20:30 All other systems are negative. Exam: 20:38 Constitutional: The patient appears in no acute distress, alert, awake, non-toxic, well cp developed, well nourished. 20:38 Head/Face: Normocephalic, atraumatic. cp 20:38 Eyes: Periorbital structures: appear normal, Conjunctiva: normal, no exudate, no injection, Sclera: no appreciated abnormality, Lids and lashes: appear normal, bilaterally. 20:38 ENT: External ear(s): are unremarkable, Nose: is normal, Mouth: is normal, Posterior pharynx: is normal, airway is patent, no erythema, no exudate. 20:38 Cardiovascular: Rate: normal, Rhythm: regular. 20:38 Respiratory: the patient does not display signs of respiratory distress, Respirations: normal, no use of accessory muscles, no retractions, no splinting, no tachypnea, labored breathing, is not present. 20:38 Abdomen/GI: Exam negative for discomfort, distension, guarding, Inspection: abdomen appears normal. 20:38 Skin: injury, laceration(s), the wound is approximately 2 cm(s), of the henry side cp distal phalanx left middle finger, that can be described as clean, no foreign body, irregular, with moderate bleeding. 20:38 Skin: injury, laceration(s), noted several smaller, more superficial lacerations to cp base of index and small fingers, with minimal bleeding noted. Vital Signs: 19:16 BP 132 / 82; Pulse 92; Resp 16; Temp 98.4(TE); Pulse Ox 98% on R/A; Weight 123.38 kg lk1 (R); Height 5 ft. 11 in. (180.34 cm) (R); Pain 3/10; 19:16 Body Mass Index 37.94 (123.38 kg, 180.34 cm) lk1 MDM: 20:11 Patient medically screened. 08/18 20:20 Order name: XRAY Hand LEFT 3 View; Complete Time: 21:21 08/18 21:21 Interpretation: Report reviewed. 08/18 20:20 Order name: Wound Care: please clean and irrigate wounds; Complete Time: 20:36 cp 08/18 20:46 Order name: Dressing - Wound; Complete Time: 21:49 08/18 20:46 Order name: Gloves, Sterile; Complete Time: 20:47 08/18 20:46 Order name: Setup Suture Tray; Complete Time: 20:47 cp 08/18 21:21 Order name: Wound dressing; Complete Time: 21:49 cp Administered Medications: 21:00 Drug: Lidocaine (1 %) 10 ml {Note: by MYESHA Bah.} Volume: 20 ml; Route: Infiltration; [facility] 21:49 Drug: KeFLEX 500 mg Route: PO; aj1 21:50 Follow up: Response: No adverse reaction aj1 Disposition: 08/18/17 21:23 Discharged to Home. Impression: Laceration without foreign body of left middle finger without damage to nail. - Condition is Stable. - Discharge Instructions: Laceration Care, Adult. - Prescriptions for Keflex 500 mg Oral Capsule - take 1 capsule by ORAL route every 8 hours for 10 days; 30 capsule. - Medication Reconciliation Form, Thank You Letter, Antibiotic Education, Prescription Opioid Use form. - Follow up: Private Physician; When: 7 - 10 days; Reason: Staple/Suture removal. - Problem is new. - Symptoms have improved. Addendum: 08/21/2017 07:41 Co-signature as Attending Physician, Jose Garg MD I agree with the assessment and c malik plan of care. Signatures: Dispatcher [employer] Jeanna Lei RN RN aj1 Jose Garg MD MD cha Page, Corey, PA PA Danae Hammonds, RN RN lk1 Corrections: (The following items were deleted from the chart) 08/18 21:52 21:23 08/18/2017 21:23 Discharged to Home. Impression: Laceration without foreign body aj1 of left middle finger without damage to nail. Condition is Stable. Forms are Medication Reconciliation Form, Thank You Letter, Antibiotic Education, Prescription Opioid Use. Follow up: Private Physician; When: 7 - 10 days; Reason: Staple/Suture removal. Problem is new. Symptoms have improved. cp
[2017-08-18] MEDS ORDERED: CEPHALEXIN 250 MG CAP ONE (21:29)
== END 2017-08-18 21:52 | disposition home or self-care (01) ==
LOC: ER 18:50
DX: S61.213A Laceration without foreign body of left middle finger without damage to nail, initial encounter (principal); W27.1XXA Contact with garden tool, initial encounter; Y93.89 Activity, other specified; Y92.9 Unspecified place or not applicable
CPT/HCPCS: 99284

== ENCOUNTER 2017-09-26 09:21 | Observation (INO) | payer OTHER ==
[2017-09-26] MEDS ORDERED: NA CHLORIDE 0.9% 1,000 ML ONE ×2 (09:46→10:39)
--- NOTE | 2017-09-26 10:06 | RAD REPORT ---
EXAM DESCRIPTION: CT - Stone Protocol - 09/26/2017 9:51 am CLINICAL HISTORY: Flank pain. FLANK PAIN COMPARISON: None TECHNIQUE: Axial images were obtained without oral or IV contrast. Lack of contrast limits solid org an and vascular assessment. The [id number] spans the entirety of the system partially obscuring uppermost abdomen and lung bases. Coronal reformatted images were obtained and reviewed. All CT scans are performed using dose optimization technique as appropriate and may include automated exposure control or mA/KV adjustment according to patient size. FINDINGS: The lower lung lucas are clear. Fatty liver is noted. No focal mass or biliary dilatation. Spleen is normal in size. The pancreas and adrenal glands are normal. No pathologic lymphadenopathy in the abdomen or pelvis. No urinary tract stones or obstructive uropathy. No bowel obstruction, free air, free fluid or abscess. Normal appendix noted.Postsurgical changes are present at the level of the sigmoid colon. Small fat containing umbilical hernia. No significant bony abnormality. IMPRESSION: No urinary tract stones or obstructive uropathy. Diffuse fatty liver.
[2017-09-26 10:22] LABS: Absolute Lymphocytes (CBC) 1.9 K/uL (0.7-4.9); Absolute Monocytes 0.8 K/uL (0.1-1.3); Absolute Neutrophil 3.1 K/uL (1.8-8.0); Basophils % 0.7 % (0-1.3); Eosinophils % 1.1 % (0-4.4); Lymphocytes % 32.6 % (15.3-44.8); MCH 31.5 pg (27.0-35.0); MCV 91.1 fL (80-100); MPV 8.9 fL (7.6-11.3); RBC Red Blood Cell Count 5.16 M/uL (4.33-5.43)
[2017-09-26 10:38] LABS: Albumin 3.6 g/dL (3.4-5.0); Bilirubin Direct 0.2 mg/dL (0-0.2); Bilirubin Total 0.8 mg/dL (0.2-1.0); Protein, Total 7.5 g/dL (6.4-8.2)
[2017-09-26 10:39] LABS: Potassium 2.6 mmol/L (3.5-5.1)
[2017-09-26] MEDS ORDERED: POTASSIUM 25 MEQ EFFERV TAB ONE (10:50)
[2017-09-26] MEDS ORDERED: NS KCL 20MEQ 1,000 ML IV ONE (10:50)
[2017-09-26] MEDS ORDERED: NA CHLORIDE 0.9% 100 ML with POTASSIUM CL 10 MEQ IV ONE ×2 (11:00)
--- NOTE | 2017-09-26 11:57 | ER ---
Nurse's Notes [facility] Name: Chris Sweeney Age: 57 yrs Sex: Male : 1960 Arrival Date: 09/26/2017 Time: 09:24 Bed 5 Private MD: Richard Moran Diagnosis: Vomiting;Diarrhea, unspecified;Hypokalemia;Abdominal tenderness Presentation: 09/26 09:25 Presenting complaint: Patient states: diarrhea and vomiting since Monday, Immodium sv taken 2 days ago and has subsided since. Reports decreased appetite and drinking fluids now but wasn't urinating as much until yesterday and pt reports some blood tinged urine. Pt also reports chills on Mon and and losing 20 pounds since Monday. Transition of care: patient was not received from another setting of care. Onset of symptoms was September 20, 2017. Risk Assessment: Do you want to hurt yourself or someone else? Patient reports no desire to harm self or others. Care prior to arrival: None. 09:25 Method Of Arrival: Ambulatory sv 09:25 Acuity: HOLLY 3 sv Triage Assessment: :25 General: Appears in no apparent distress. uncomfortable, Behavior is calm, cooperative, sv appropriate for age. Pain: Complains of pain in abdomen Pain currently is 6 out of 10 on a pain scale. Pain began Monday. EENT: No signs and/or symptoms were reported regarding the EENT system. Neuro: Level of Consciousness is awake, alert, obeys commands, Oriented to person, place, time, situation, Moves all extremities. Gait is steady. Respiratory: Respiratory effort is even, unlabored, Respiratory pattern is regular, symmetrical. GI: Reports lower abdominal pain, intolerance of food, tolerance of fluids, vomiting. : Reports discharge, blood tinged yesterday. Derm: Skin is normal. Musculoskeletal: No signs and/or symptoms reported regarding the musculoskeletal system. Historical: - Allergies: :42 No Known Allergies; sv - Home Meds: :42 Protonix 40 mg Oral TbEC 1 tab once daily [Active]; hyoscyamine sulfate 0.125 mg SL sv subl QID prn [Active]; aspirin 81 mg Oral TbEC 1 tab once daily [Active]; Glipizide Oral [Active]; lisinopril-hydrochlorothiazide oral oral [Active]; metformin er [Active]; multivitamin oral oral [Active]; Omeprazole Oral [Active]; Zoloft Oral [Active]; - PMHx: 09:42 Diabetes - NIDDM; Hypertension; Renal Disease; sv - PSHx: 09:42 Vasectomy; colon resection; Hernia repair; sinus; sv - Immunization history:: Adult Immunizations up to date. - Social history:: Smoking status: Patient/guardian denies using tobacco, Patient uses alcohol. - Ebola Screening: : Patient negative for fever greater than or equal to 101.5 degrees Fahrenheit, and additional compatible Ebola Virus Disease symptoms Patient denies exposure to infectious person Patient denies travel to an Ebola-affected area in the 21 days before illness onset No symptoms or risks identified at this time. - Family history:: not pertinent. Screenin:00 Abuse screen: Denies threats or abuse. Denies injuries from another. Nutritional sg screening: No deficits noted. Tuberculosis screening: No symptoms or risk factors identified. Never had TB. Fall Risk None identified. Assessment: 10:00 General: Appears in no apparent distress. comfortable, well groomed, well developed, sg well nourished, Behavior is calm, cooperative, appropriate for age. Pain: Complains of pain in posterior aspect of right lateral abdomen and posterior aspect of left lateral abdomen and right lower quadrant and left upper quadrant. Neuro: Level of Consciousness is awake, alert, obeys commands, Oriented to person, place, time, situation, Speech is normal, Facial symmetry appears normal, Pupils are PERRLA. Cardiovascular: Heart tones S1 S2 present Capillary refill is brisk in bilateral fingers Patient's skin is warm and dry. Chest pain is denied. Respiratory: Airway is patent Respiratory effort is even, unlabored, Respiratory pattern is regular, symmetrical, Breath sounds are clear Denies cough, shortness of breath labored breathing, pain with respiration, pain with cough, pain with movement, air hunger. GI: Abdomen is round non-distended, obese, Bowel sounds present X 4 quads. : No signs and/or symptoms were reported regarding the genitourinary system. EENT: No signs and/or symptoms were reported regarding the EENT system. Derm: Skin is intact, is healthy with good turgor, Skin is dry, Skin is pale, Skin temperature is warm. Musculoskeletal: No signs and/or symptoms reported regarding the musculoskeletal system. Vital Signs: 09:25 BP 129 / 94; Pulse 105; Resp 20; Temp 96.2(TE); Pulse Ox 96% on R/A; Weight 115.67 kg; sv Height 5 ft. 11 in. (180.34 cm); Pain 6/10; 10:10 BP 126 / 82; Pulse 90; Resp 17 S; Pulse Ox 97% on R/A; sg 11:11 BP 135 / 89; Pulse 75; Resp 16 S; Pulse Ox 98% on R/A; Pain 4/10; sg 13:00 Temp 97.9; ss 13:06 BP 133 / 88; Pulse 76; Resp 18 S; Pulse Ox 100% on R/A; Pain 4/10; ss 09:25 Body Mass Index 35.57 (115.67 kg, 180.34 cm) sv ED Course: 09:24 Patient arrived in ED. rg4 09:24 Richard Moran MD is Private Physician. rg4 09:25 Patient placed in an exam room, on a stretcher. sv 09:27 Thaddeus Machado, KEVAN is Primary Nurse. sg 09:28 Arm band placed on. sg 09:36 Jose Garg MD is Attending Physician. aaron 09:40 Triage completed. sv 09:[address] vr 09:[address] via wheelchair. sw 09:47 CT completed. Patient tolerated procedure well. Patient moved back from CT. sw 09:52 CT Stone Protocol In Process Unspecified. EDMS 10:00 Patient has correct armband on for positive identification. Bed in low position. Call light in reach. Side rails up X2. panel monitor on. Pulse ox on. NIBP on. Warm blanket given. Head of bed elevated. 10:00 Initial lab(s) drawn, by nj, sent to lab. Inserted saline lock: 20 gauge in left sg antecubital area, using aseptic technique. Blood collected. 11:50 No provider procedures requiring assistance completed. Patient admitted, IV remains in ss place. intact, bleeding controlled, No redness/swelling at site. Pressure dressing applied. 11:56 Shaw Henriquez MD is Hospitalizing Provider. aaron Administered Medications: 10:06 Drug: NS 0.9% 1000 ml Route: IV; Rate: 1 bolus; Site: left antecubital; sg 10:39 Drug: NS 0.9% 1000 ml Route: IV; Rate: 1 bolus; Site: left antecubital; sg 10:54 Drug: Potassium Effervescent Tablet 25 mEq Route: PO; sg 11:40 Drug: Potassium Chloride 10 mEq Route: IV; Rate: per protocol; Site: left antecubital; sg 12:48 Follow up: IV Status: Completed infusion ss 11:50 Not Given (Duplicate Order): Potassium Chloride 10 mEq IV at per protocol once; aaron administer over 1-2 hours 13:03 Drug: NS 0.9% with KCl 20 mEq/L 1000 ml Route: IV; Rate: 125 ml/hr; Site: left ss antecubital; 13:03 Drug: Potassium Phosphate 15 mmol Route: IV; Rate: per protocol; Site: left antecubital; Outcome: 11:56 Decision to Hospitalize by Provider. [facility] 13:25 Patient left the ED. sg Signatures: Dispatcher [employer] EDLy Foster RN RN sv Gay, Steven, RN RN sg Anderson, Corey, MD MD cha Smirch, Shelby, RN RN ss Davis, Victoria vr Warren, Shannon sw Garcia, Rubi rg4 Corrections: (The following items were deleted from the chart) 09:43 09:42 BP 129 / 94; Pulse 105bpm; Resp 20bpm; Pulse Ox 96% RA; Temp 96.2F Temporal; sv 115.67 kg; Height 5 ft. 11 in.; BMI: 35.5; Pain 6/10; sv
--- NOTE | 2017-09-26 11:57 | EDPHYS ---
Physician Documentation [facility] Name: Chris Sweeney Age: 57 yrs Sex: Male : 1960 Arrival Date: 09/26/2017 Time: 09:24 Bed 5 Private MD: Richard Moran ED Physician Jose Garg HPI: 09/26 10:06 This 57 yrs old Male presents to ER via Ambulatory with complaints of aaron Diarrhea, Possible Kidney Stone. 10:06 The patient presents to the emergency department with nausea, vomiting, diarrhea, aaron abdominal pain, of the right upper quadrant, left upper quadrant, right lower quadrant and left lower quadrant. Onset: The symptoms/episode began/occurred 5 day(s) ago. Possible causes: unknown. The symptoms are aggravated by nothing. The symptoms are alleviated by nothing. Associated signs and symptoms: The patient has no apparent associated signs or symptoms. Severity of symptoms: At their worst the symptoms were. The patient has not experienced similar symptoms in the past. Historical: - Allergies: 09:42 No Known Allergies; sv - Home Meds: :42 Protonix 40 mg Oral TbEC 1 tab once daily [Active]; hyoscyamine sulfate 0.125 mg SL sv subl QID prn [Active]; aspirin 81 mg Oral TbEC 1 tab once daily [Active]; Glipizide Oral [Active]; lisinopril-hydrochlorothiazide oral oral [Active]; metformin er [Active]; multivitamin oral oral [Active]; Omeprazole Oral [Active]; Zoloft Oral [Active]; - PMHx: 09:42 Diabetes - NIDDM; Hypertension; Renal Disease; sv - PSHx: 09:42 Vasectomy; colon resection; Hernia repair; sinus; sv - Immunization history:: Adult Immunizations up to date. - Social history:: Smoking status: Patient/guardian denies using tobacco, Patient uses alcohol. - Ebola Screening: : Patient negative for fever greater than or equal to 101.5 degrees Fahrenheit, and additional compatible Ebola Virus Disease symptoms Patient denies exposure to infectious person Patient denies travel to an Ebola-affected area in the 21 days before illness onset No symptoms or risks identified at this time. - Family history:: not pertinent. ROS: 10:06 Constitutional: Negative for fever, chills, and weight loss, Eyes: Negative for injury, aaron pain, redness, and discharge, ENT: Negative for injury, pain, and discharge, Neck: Negative for injury, pain, and swelling, Cardiovascular: Negative for chest pain, palpitations, and edema, Respiratory: Negative for shortness of breath, cough, wheezing, and pleuritic chest pain, Back: Negative for injury and pain, : Negative for injury, bleeding, discharge, and swelling, MS/Extremity: Negative for injury and deformity, Skin: Negative for injury, rash, and discoloration, Neuro: Negative for headache, weakness, numbness, tingling, and seizure, Psych: Negative for depression, anxiety, suicide ideation, homicidal ideation, and hallucinations, Allergy/Immunology: Negative for hives, rash, and allergies, Endocrine: Negative for neck swelling, polydipsia, polyuria, polyphagia, and marked weight changes, Hematologic/Lymphatic: Negative for swollen nodes, abnormal bleeding, and unusual bruising. 10:06 Abdomen/GI: Positive for abdominal pain, nausea and vomiting, nausea, vomiting, and diarrhea, nausea, vomiting, diarrhea, abdominal cramps, of the posterior aspect of left lateral abdomen, posterior aspect of right lateral abdomen, right upper quadrant, left upper quadrant, right lower quadrant and left lower quadrant. 10:06 Abdomen/GI: Positive for Exam: 10:06 Constitutional: This is a well developed, well nourished patient who is awake, alert, aaron and in no acute distress. Head/Face: Normocephalic, atraumatic. Eyes: Pupils equal round and reactive to light, extra-ocular motions intact. Lids and lashes normal. Conjunctiva and sclera are non-icteric and not injected. Cornea within normal limits. Periorbital areas with no swelling, redness, or edema. ENT: Nares patent. No nasal discharge, no septal abnormalities noted. Tympanic membranes are normal and external auditory canals are clear. Oropharynx with no redness, swelling, or masses, exudates, or evidence of obstruction, uvula midline. Mucous membranes moist. Neck: Trachea midline, no thyromegaly or masses palpated, and no cervical lymphadenopathy. Supple, full range of motion without nuchal rigidity, or vertebral point tenderness. No Meningismus. Chest/axilla: Normal chest wall appearance and motion. Nontender with no deformity. No lesions are appreciated. Cardiovascular: Regular rate and rhythm with a normal S1 and S2. No gallops, murmurs, or rubs. Normal PMI, no JVD. No pulse deficits. Respiratory: Lungs have equal breath sounds bilaterally, clear to auscultation and percussion. No rales, rhonchi or wheezes noted. No increased work of breathing, no retractions or nasal flaring. Back: No spinal tenderness. No costovertebral tenderness. Full range of motion. Male : Normal genitalia with no discharge or lesions. Skin: Warm, dry with normal turgor. Normal color with no rashes, no lesions, and no evidence of cellulitis. MS/ Extremity: Pulses equal, no cyanosis. Neurovascular intact. Full, normal range of motion. Neuro: Awake and alert, GCS 15, oriented to person, place, time, and situation. Cranial nerves II-XII grossly intact. Motor strength 5/5 in all extremities. Sensory grossly intact. Cerebellar exam normal. Normal gait. Psych: Awake, alert, with orientation to person, place and time. Behavior, mood, and affect are within normal limits. 10:06 Abdomen/GI: Inspection: abdomen appears normal, Bowel sounds: normal, Palpation: mild abdominal tenderness, in the right upper quadrant, left upper quadrant, right lower quadrant and left lower quadrant. Vital Signs: 09:25 BP 129 / 94; Pulse 105; Resp 20; Temp 96.2(TE); Pulse Ox 96% on R/A; Weight 115.67 kg; sv Height 5 ft. 11 in. (180.34 cm); Pain 6/10; 10:10 BP 126 / 82; Pulse 90; Resp 17 S; Pulse Ox 97% on R/A; sg 11:11 BP 135 / 89; Pulse 75; Resp 16 S; Pulse Ox 98% on R/A; Pain 4/10; sg 13:00 Temp 97.9; ss 13:06 BP 133 / 88; Pulse 76; Resp 18 S; Pulse Ox 100% on R/A; Pain 4/10; ss 09:25 Body Mass Index 35.57 (115.67 kg, 180.34 cm) sv MDM: 09:36 Patient medically screened. [facility] 10:10 Data reviewed: vital signs, nurses notes, lab test result(s), radiologic studies, CT aaron scan. 09/26 09:39 Order name: Amylase, Serum; Complete Time: 10:43 [facility] 09/26 09:39 Order name: Basic Metabolic Panel; Complete Time: 10:43 [facility] 09/26 09:39 Order name: CBC with Diff; Complete Time: 10:43 [facility] 09/26 09:39 Order name: Creatinine for Radiology; Complete Time: 10:43 [facility] 09/26 09:39 Order name: Hepatic Function; Complete Time: 10:43 [facility] 09/26 09:39 Order name: Lipase; Complete Time: 10:43 [facility] 09/26 09:39 Order name: Urine Microscopic Only [facility] 09/26 09:39 Order name: CT Stone Protocol; Complete Time: 10:09 [facility] 09/26 09:39 Order name: Urine Culture [facility] 09/26 10:43 Order name: Phosphorus; Complete Time: 11:42 [facility] 09/26 13:00 Order name: Urine Dipstick--Ancillary (enter results) 09/26 13:09 Order name: Urine Dipstick-Ancillary [facility] 09/26 09:39 Order name: IV Saline Lock; Complete Time: 10:06 [facility] 09/26 09:39 Order name: Labs collected and sent; Complete Time: 10: [facility] 09/26 09:39 Order name: Urine Dipstick-Ancillary (obtain specimen); Complete Time: 13:10 [facility] Administered Medications: 10:06 Drug: NS 0.9% 1000 ml Route: IV; Rate: 1 bolus; Site: left antecubital; sg 10:39 Drug: NS 0.9% 1000 ml Route: IV; Rate: 1 bolus; Site: left antecubital; sg 10:54 Drug: Potassium Effervescent Tablet 25 mEq Route: PO; sg 11:40 Drug: Potassium Chloride 10 mEq Route: IV; Rate: per protocol; Site: left antecubital; sg 12:48 Follow up: IV Status: Completed infusion ss 11:50 Not Given (Duplicate Order): Potassium Chloride 10 mEq IV at per protocol once; [facility] administer over 1-2 hours 13:03 Drug: NS 0.9% with KCl 20 mEq/L 1000 ml Route: IV; Rate: 125 ml/hr; Site: left ss antecubital; 13:03 Drug: Potassium Phosphate 15 mmol Route: IV; Rate: per protocol; Site: left antecubital; Disposition: 09/26/17 11:56 Hospitalization ordered by Shaw Henriquez for Observation. Preliminary diagnosis are Vomiting, Diarrhea, unspecified, Hypokalemia, Abdominal tenderness. - Bed requested for Telemetry/MedSurg (observation). - Status is Observation. sg - Condition is Fair. - Problem is new. - Symptoms have improved. UTI on Admission? No Signatures: Dispatcher [employer] EDMS Ly Nguyen RN Elda Garrett RN RN dw Gay, Steven, RN RN sg Anderson, Corey, MD MD cha Smirch, Shelby, RN RN ss Corrections: (The following items were deleted from the chart) 12:58 11:56 Hospitalization Ordered by Shaw Henriquez MD for Observation. Preliminary diagnosis dw is Vomiting; Diarrhea, unspecified; Hypokalemia; Abdominal tenderness. Bed requested for Telemetry/MedSurg (observation). Status is Observation. Condition is Fair. Problem is new. Symptoms have improved. UTI on Admission? No. aaron 13:25 12:58 09/26/2017 11:56 Hospitalization Ordered by Shaw Henriquez MD for Observation. sg Preliminary diagnosis is Vomiting; Diarrhea, unspecified; Hypokalemia; Abdominal tenderness. Bed requested for Telemetry/MedSurg (observation). Status is Observation. Condition is Fair. Problem is new. Symptoms have improved. UTI on Admission? No. dw
[2017-09-26] MEDS ORDERED: POTASSIUM PHOS IN 0.9 % NACL 15 MMOL/250 ML BAG IV ONE (12:00)
[2017-09-26] MEDS ORDERED: ACETAMINOPHEN 500 MG TAB PO PRN (12:17)
[2017-09-26] MEDS: ONDANSETRON 4 MG/2 ML VIAL IV SCH ×3 (13:00→21:46)
[2017-09-26 13:09] LABS: Urine Blood NEGATIVE (NEG); Urine Glucose 2+ (NEG); Urine Protein NEGATIVE (NEG); Urine Specific Gravity 1.015 (1.005-1.030)
[2017-09-26 13:25] LABS: Urine Bacteria <20 /HPF (NONE SEEN); Urine Culture Reflex Order NOT NEEDED; Urine RBC <5 /HPF (NONE SEEN)
[2017-09-26 13:26] LABS: Urine Mucus 1+ /HPF (NONE SEEN)
[2017-09-26] MEDS ORDERED: HYDROCODONE/APAP 7.5/325 MG TAB PO PRN (13:48)
[2017-09-26] MEDS: CYCLOBENZAPRINE 10 MG TAB PO PRN ×2 (14:41→21:46)
[2017-09-26] MEDS ORDERED: GLUCAGON 1 MG/VIAL IM PRN (14:57)
[2017-09-26] MEDS ORDERED: D50W 25 GM/50 ML SYRINGE IV PRN (14:57)
[2017-09-26] MEDS: INSULIN -REGULAR HUMAN 50 UNIT/0.5 ML ML SQ SCH ×2 (16:30→21:47)
[2017-09-26] MEDS ORDERED: ENOXAPARIN 40 MG/0.4 ML SQ SCH (17:00)
[2017-09-26] MEDS: NA CHLORIDE 0.9% 1,000 ML IV SCH ×2 (18:38→23:00)
[2017-09-26 20:35] LABS: Magnesium 1.7 mg/dL (1.8-2.4)
[2017-09-26 20:39] LABS: Potassium 2.9 mmol/L (3.5-5.1)
[2017-09-26] MEDS ORDERED: MAGNESIUM SULFATE 1 gm IVPB 1 GM/100 ML BAG IV ONE (21:30)
[2017-09-26] MEDS: KCL 20 MEQ/100 mL IVPB 20 MEQ/100 ML BAG IV SCH (22:59)
[2017-09-27] MEDS: KCL 20 MEQ/100 mL IVPB 20 MEQ/100 ML BAG IV SCH ×2 (00:37→02:17)
[2017-09-27] MEDS: ONDANSETRON 4 MG/2 ML VIAL IV SCH ×4 (01:00→13:00)
--- NOTE | 2017-09-27 01:16 | HP ---
Date of Admission: 09/26/2017 Code Status: Full. Primary Care Physician: Richard Moran MD Chief Complaint: Abdominal pain, nausea, vomiting. History Of Present Illness: The patient is a 57-year-old male with past medical history of diabetes, hypertension, GERD, hyperlipidemia, diverticulitis, comes in with intractable nausea and vomiting an d diarrhea. The patient states that his symptoms are constant, moderate, progressively worsening. S tates that there were some ill contacts at his workplace with similar symptoms. The patient, however , denies any fevers, chills, or blood in the stool. He states that his symptoms have been ongoing fo r the past 72 hours. The patient unable to keep any p.o. intake. The patient denies any alleviating factors. The patient therefore came into the ER for further evaluation. Upon arrival, his vital si gns were stable. He was afebrile. His workup revealed multiple electrolyte abnormalities. White co unt was normal. He did report some flank pain. The CT scan of the abdomen was done, which did not s how any urinary tract stones or obstructive uropathy. The patient was referred for admission. When seen in the ER, he was awake, alert, oriented x3, in some mild distress. Past Medical History: Diabetes mellitus type 2 non-insulin dependent, hypertension, gastroesophageal reflux disease, diverticulitis, hyperlipidemia. Past Surgical History: Partial colon resection, hysterectomy with reversal. Allergies: NO KNOWN DRUG ALLERGIES. Medications: List reviewed. Social History: The patient denies any tobacco use or illicit drug use. The patient does drink beer occasionally. Retired [employer] . Family History: Positive for coronary artery disease in both parents. Review of Systems: An 11-point system reviewed, negative except as per HPI. Physical Examination: Vital Signs: Temperature 96.2, heart rate 105, blood pressure 129/94, respirations 20, O2 96% on yariel m air. General: Awake, alert, oriented x3, some mild distress due to pain, ill-appearing male. HEENT: Normocephalic, atraumatic. PERRLA. EOMI. Dry mucous membranes. Oropharynx is clear. Norm al dentition. Conjunctivae anicteric. Neck: Supple. No JVD. Trachea midline. CV: S1, S2. Sinus tachycardia. No murmurs. Regular rate and rhythm. Peripheral pulses are presen t. Respiratory: Clear to auscultation bilaterally. No wheezing. No stridor. No use of accessory musc les. Gastrointestinal: Abdomen is soft. Mild tenderness to palpation in the left lower quadrant. No immanuel ound, guarding, or rigidity. Bowel sounds positive. Extremities: No clubbing, cyanosis, or edema. No calf tenderness. Neuro: Cranial nerves 2 through 12 intact grossly. No focal neurological deficit. Speech is normal . 5/5 strength bilateral upper and lower extremities. Skin: No rashes. Normal skin turgor. Psych: Mood is okay. Affect is full. Insight and judgment are good. Laboratory Data: Sodium 138, potassium 2.6, chloride 92, CO2 27, BUN 16, creatinine 1.3, glucose of 74, calcium 8.8, phosphorus 2.4, AST 74, ALT 112. WBC 5.9, H and H 16.3 and 47, platelets 284, lipas e 309, amylase 61. UA is negative. CT scan of the abdomen and pelvis personally reviewed shows no u rinary tract stone or obstructive uropathy, diffuse fatty liver. Assessment And Plan: A 57-year-old male with: 1.Intractable nausea and vomiting may be secondary to viral versus bacterial gastroenteritis. Diffe rential diagnosis also includes diabetic gastroparesis. 2.Hypophosphatemia. We will replace and monitor. 3.Hypokalemia. We will replace and monitor secondary to above. 4.Hyponatremia. We will start on IV fluids and monitor sodium level. 5.Diarrhea. 6.Essential hypertension, stable. 7.Diabetes mellitus type 2, non-insulin requiring. We will continue with sliding scale insulin and Accu-Cheks. 8.Hyperlipidemia. 9.History of diverticulitis, status post partial colon resection. No small-bowel obstruction or ile us seen on CT. 10.Acute dehydration. We will continue IV fluid and supportive care. Plan: Ad[facility] the [facility] to [facility]. TYLER Voice ID: [id number]
[2017-09-27 05:03] LABS: Absolute Lymphocytes (CBC) 2.2 K/uL (0.7-4.9); Absolute Monocytes 0.6 K/uL (0.1-1.3); Absolute Neutrophil 1.7 K/uL (1.8-8.0); Basophils % 1.4 % (0-1.3); Eosinophils % 2.7 % (0-4.4); Hematocrit 39.3 % (39.6-49.0); Lymphocytes % 46.6 % (15.3-44.8); MCH 32.5 pg (27.0-35.0); MCV 90.3 fL (80-100); MPV 8.4 fL (7.6-11.3); Monocytes % 12.6 % (3.3-12.3); RBC Red Blood Cell Count 4.36 M/uL (4.33-5.43)
[2017-09-27 05:28] LABS: Bilirubin Total 0.7 mg/dL (0.2-1.0); Magnesium 1.8 mg/dL (1.8-2.4); Phosphorus 2.4 mg/dL (2.5-4.9); Potassium 3.3 mmol/L (3.5-5.1); Protein, Total 6.1 g/dL (6.4-8.2)
[2017-09-27] MEDS: NA CHLORIDE 0.9% 1,000 ML IV SCH ×2 (06:29→08:58)
[2017-09-27] MEDS ORDERED: MAGNESIUM SULFATE 1 gm IVPB 1 GM/100 ML BAG IV ONE (06:30)
[2017-09-27] MEDS: POTASS/SODIUM PHOSPHATE 1 PKT POWD.PACK PO SCH ×3 (06:30→08:53)
[2017-09-27] MEDS ORDERED: PANTOPRAZOLE 40MG TABLET PO SCH (07:30)
[2017-09-27] MEDS: INSULIN -REGULAR HUMAN 50 UNIT/0.5 ML ML SQ SCH ×2 (07:46→11:42)
[2017-09-27] MEDS ORDERED: KCL 20 MEQ/100 mL IVPB 20 MEQ/100 ML BAG IV SCH (08:00)
[2017-09-27] MEDS ORDERED: GLIPIZIDE S.A. 5 MG TAB PO SCH (08:00)
[2017-09-27] MEDS ORDERED: LISINOPRIL 20 MG TAB PO SCH (09:00)
[2017-09-27] MEDS ORDERED: ASPIRIN 81 MG CHEWABLE TABLET PO SCH (09:00)
[2017-09-27] MEDS ORDERED: SERTRALINE HCL 50 MG TAB PO SCH (09:00)
[2017-09-27] MEDS ORDERED: GLIPIZIDE PO SCH (09:00)
[2017-09-27] MEDS ORDERED: HOME MED 1 EA UNK (Omeprazole [Omeprazole] 1 TAB) PO SCH (09:00)
[2017-09-27] MEDS ORDERED: hydroCHLOROthiazide 25 MG TAB PO SCH (09:00)
[2017-09-27] MEDS ORDERED: HOME MED 1 EA UNK (Lisinopril/Hydrochlorothiazide [Zestoretic 20-25 Mg Tablet] 1 TAB) PO SCH (09:00)
[2017-09-27] MEDS ORDERED: POTASSIUM CL SA 10 MEQ TAB PO ONE (10:00)
--- NOTE | 2017-09-28 03:04 | DS ---
Date of Discharge: 09/27/2017 Admitting Diagnoses: 1.Intractable nausea and vomiting. 2.Diarrhea. 3.Hypophosphatemia. 4.Hypokalemia. 5.Hyponatremia. 6.Diarrhea. 7.Essential hypertension. 8.Diabetes mellitus type 2, non-insulin requiring. 9.Hyperlipidemia. 10.History of diverticulitis, status post partial colon resection. 11.Acute dehydration. Discharge Diagnoses: 1.Intractable nausea and vomiting secondary to viral gastroenteritis, resolved. 2.Hypophosphatemia, replaced. 3.Hypokalemia, replaced. 4.Hyponatremia, improved. 5.Diarrhea, resolved. 6.Essential hypertension stable. 7.Diabetes mellitus type 2, non-insulin requiring. 8.Mixed hyperlipidemia. 9.History of diverticulitis, status post partial colon resection. 10.Acute dehydration, resolved. Hospital Course: The patient is a 57-year-old male who came in with acute nausea, vomiting, diarrhea , likely with viral gastroenteritis. The patient was severely dehydrated and required IV fluids. He had multiple electrolyte abnormalities including low potassium, sodium, and phosphate. His electrol ytes were replaced. He was given IV fluids and was rehydrated. The patient's condition improved. H is liver enzymes normalized. His urine did not show any UTI. His white count was normal. The patie nt had CT scan of the abdomen done in the ER, which did not show any urinary tract stones or obstruct miguel uropathy. He was complaining of some flank pain which improved with hydration and supportive car e. His CT did show diffuse fatty liver disease and he was instructed and counseled on diet and exerc ise modification. He understands that nonalcoholic fatty liver disease may result in liver cirrhosis eventually and may lead to need for liver transplant and may lead to significant morbidity and morta lity. The patient voiced understanding. The patient was then able to tolerate a diet. He did not h ave any further nausea, vomiting. Diarrhea resolved. The patient was able to ambulate without getti ng dizzy. He was then cleared for discharge, sent home in a stable condition. Activity: As tolerated. Medications: As per medication reconciliation list. Followup: Follow up with primary care physician in 2 to 3 days. Follow up with GI doctor, Dr. Cherie berman, in 2 weeks. Return to ER for worsening condition. Physical Examination: General: Awake, alert, oriented, no acute distress. CV: S1, S2. No murmurs. Respiratory: Moving air well bilaterally. Abdomen: Soft, nontender, nondistended. Positive bowel sounds. Extremities: No clubbing, cyanosis, edema. Neurologic: Nonfocal. SA/MODL Voice ID: [id number] Report ID: [id number]
== END 2017-09-27 13:16 | disposition home or self-care (01) ==
LOC: ER 09:21 → ERHOLD 11:57 → 4TH 13:16
PROVIDERS: ADMIT Family Medicine; ATTEND Family Medicine
DX: A08.4 Viral intestinal infection, unspecified (principal); E11.9 Type 2 diabetes mellitus without complications; I10 Essential (primary) hypertension; K21.9 Gastro-esophageal reflux disease without esophagitis; E83.39 Other disorders of phosphorus metabolism; E87.6 Hypokalemia; E87.1 Hypo-osmolality and hyponatremia; E86.0 Dehydration; E78.2 Mixed hyperlipidemia
CPT/HCPCS: 36415; 74176; 76377; 80048; 80053; 80076; 81003; 81015; 82150; 82962; 83690; 83735; 84100; 84132; 85025; 87086; 87088; 94760; 96365; 96375; 99285; G0378; J1650; J2405; J3475; J7030

== ENCOUNTER 2018-05-26 11:54 | Inpatient (IN) | payer OTHER ==
[2018-05-26 12:22] LABS: Absolute Lymphocytes (CBC) 2.1 K/uL (0.7-4.9); Absolute Monocytes 1.1 K/uL (0.1-1.3); Absolute Neutrophil 11.7 K/uL (1.8-8.0); Basophils % 0.3 % (0-1.3); Hematocrit 48.2 % (39.6-49.0); Lymphocytes % 14.1 % (15.3-44.8); MPV 9.5 fL (7.6-11.3); Monocytes % 7.5 % (3.3-12.3); RBC Red Blood Cell Count 5.44 M/uL (4.33-5.43)
[2018-05-26] MEDS ORDERED: ONDANSETRON 4 MG/2 ML VIAL ONE ×2 (12:29→14:35)
[2018-05-26] MEDS ORDERED: NA CHLORIDE 0.9% 1,000 ML ONE ×3 (12:29→17:21)
[2018-05-26] MEDS ORDERED: MORPHINE 4 MG/ML SYR ONE ×2 (12:29→14:35)
[2018-05-26 12:36] LABS: Potassium 3.9 mmol/L (3.5-5.1)
--- NOTE | 2018-05-26 14:40 | RAD REPORT ---
EXAM DESCRIPTION: CT - Abdomen Pelvis W Contrast - 05/26/2018 2:19 pm CLINICAL HISTORY: Right lower quadrant pain, right groin pain COMPARISON: None. TECHNIQUE: Biphasic, helical CT imaging of the abdomen and pelvis was performed following 100 ml non -ionic IV contrast. Oral contrast was given. All CT scans are performed using dose optimization technique as appropriate and may include automated exposure control or mA/KV adjustment according to patient size. FINDINGS: No suspicious findings in the lung bases. The liver, spleen, and pancreas show no suspicious focal findings. Liver does demonstrate diffuse fat ty infiltration. Gallbladder and biliary tree show no suspicious findings. Symmetric renal function is seen with no hydronephrosis or suspicious renal mass. No pyelonephritis o r acute parenchymal process. A small 11 mm lateral left renal cyst is present. Urinary bladder is con tracted without suspicious finding. No acute prostate finding. No adrenal abnormalities. Stomach and small bowel show no acute findings. Thompson of the stomach are accentuated by the lack of l umen content. Appendix is grossly abnormal. Appendix is 15 mm in diameter with thickened enhancing thompson. There is periappendiceal inflammatory stranding. No free air or abscess. No extravasation of bowel content. Ti p of the cecum shows significant wall thickening. A punctate 6 mm lymph node is present adjacent to t he appendix. No clearly pathologic lymphadenopathy. No free air or pneumatosis. No inflammatory stranding elsewhere. No hernia, mass or bulky lymphadeno lillie. Rectosigmoid anastomotic site shows no acute finding. There is diverticulosis in the sigmoid c olon. No diverticulitis. No suspicious bony findings. Findings telephoned to the referring clinician 2:36 p.m.. IMPRESSION: Acute appendicitis with significant fluid and stranding in the surrounding fatty tissue. No free air, extravasation of contrast or other findings of elizabeth perforation. Significant circumferential wall thickening is present at the tip of the cecum. A few reactive type l ymph nodes are present in the periappendiceal fat. Findings all favor acute appendicitis. Malignancy at the tip of the cecum or base of the appendix is unlikely but not excluded. Appendix is in classic right lower quadrant location. Diffuse fatty infiltration of the liver.
--- NOTE | 2018-05-26 14:54 | EDPHYS ---
Physician Documentation [facility] Name: Chris Sweeney Age: 58 yrs Sex: Male : 1960 Arrival Date: 05/26/2018 Time: 11:57 Bed 17 Private MD: Richard Moran ED Physician Jose Garg HPI: 05/26 12:56 This 58 yrs old Male presents to ER via Ambulatory with complaints of kb Abdominal Pain. 12:56 The patient presents with abdominal pain right lower quadrant. Onset: The kb symptoms/episode began/occurred last night. The symptoms do not radiate. Associated signs and symptoms: none. The symptoms are described as constant. Modifying factors: The symptoms are alleviated by nothing, the symptoms are aggravated by pressure. Severity of pain: At its worst the pain was moderate severe in the emergency department the pain is unchanged. The patient has not experienced similar symptoms in the past. The patient has not recently seen a physician. Historical: - Allergies: 12:09 No Known Allergies; sg - Home Meds: 12:09 aspirin 81 mg Oral TbEC 1 tab once daily [Active]; glipizide 10 mg oral tab 1 tab once sg daily [Active]; Protonix 40 mg Oral TbEC 1 tab once daily [Active]; lisinopril-hydrochlorothiazide 20-12.5 mg oral tab 1 tab once daily for Hypertension [Active]; Novolog Sub-Q 50 unit daily [Active]; Zoloft 25 mg oral tab 1 tab once daily [Active]; escitalopram oxalate 10 mg oral tab 1 tab once daily [Active]; metformin er 500 mg daily [Active]; - PMHx: 12:09 Diabetes - NIDDM; Hypertension; Renal Disease; sg - PSHx: 12:09 Vasectomy; colon resection; Hernia repair; sinus; sg - Immunization history:: Adult Immunizations up to date. - Social history:: Smoking status: Patient/guardian denies using tobacco. - Ebola Screening: : Patient negative for fever greater than or equal to 101.5 degrees Fahrenheit, and additional compatible Ebola Virus Disease symptoms Patient denies exposure to infectious person Patient denies travel to an Ebola-affected area in the 21 days before illness onset No symptoms or risks identified at this time. ROS: 12:55 Constitutional: Negative for fever, chills, and weight loss, Cardiovascular: Negative kb for chest pain, palpitations, and edema, Respiratory: Negative for shortness of breath, cough, wheezing, and pleuritic chest pain, Back: Negative for injury and pain, : Negative for injury, bleeding, discharge, and swelling, MS/Extremity: Negative for injury and deformity, Skin: Negative for injury, rash, and discoloration, Neuro: Negative for headache, weakness, numbness, tingling, and seizure. 12:55 Abdomen/GI: Positive for abdominal pain, Negative for nausea, vomiting, and diarrhea. Exam: 12:55 Constitutional: This is a well developed, well nourished patient who is awake, alert, kb and in no acute distress. Head/Face: Normocephalic, atraumatic. Chest/axilla: Normal chest wall appearance and motion. Nontender with no deformity. No lesions are appreciated. Cardiovascular: Regular rate and rhythm with a normal S1 and S2. No gallops, murmurs, or rubs. Normal PMI, no JVD. No pulse deficits. Respiratory: Lungs have equal breath sounds bilaterally, clear to auscultation and percussion. No rales, rhonchi or wheezes noted. No increased work of breathing, no retractions or nasal flaring. Back: No spinal tenderness. No costovertebral tenderness. Full range of motion. Skin: Warm, dry with normal turgor. Normal color with no rashes, no lesions, and no evidence of cellulitis. MS/ Extremity: Pulses equal, no cyanosis. Neurovascular intact. Full, normal range of motion. Neuro: Awake and alert, GCS 15, oriented to person, place, time, and situation. Cranial nerves II-XII grossly intact. Motor strength 5/5 in all extremities. Sensory grossly intact. Cerebellar exam normal. Normal gait. 12:55 Abdomen/GI: Inspection: abdomen appears normal, Bowel sounds: normal, in all quadrants, Palpation: soft, in all quadrants, moderate abdominal tenderness, in the right lower quadrant. Vital Signs: 12:05 BP 148 / 101; Pulse 89; Resp 17; Temp 97.2; Pulse Ox 98% on R/A; Weight 115.67 kg; Pain sg 10/10; 13:00 BP 149 / 88; Pulse 85; Resp 18; Pulse Ox 99% on R/A; Pain 4/10; em 14:00 BP 152 / 91; Pulse 92; Resp 18; Pulse Ox 99% on R/A; em 15:00 BP 136 / 89; Pulse 90; Resp 18; Pulse Ox 99% on R/A; Pain 5/10; em MDM: 12:00 Patient medically screened. kb 12:55 Data reviewed: vital signs, nurses notes. Data interpreted: Pulse oximetry: on room air kb is 98 %. Interpretation: normal. 14:47 Counseling: I had a detailed discussion with the patient and/or guardian regarding: the kb historical points, exam findings, and any diagnostic results supporting the discharge/admit diagnosis, lab results, radiology results, the need for further work-up and treatment in the hospital. Physician consultation: Kyler Barton MD was called at 14:48. 14:52 Physician consultation: Kyler Barton MD was contacted at 14:52, regarding consult, kb patient's condition, and will see patient in OR, shortly. 14:52 Physician consultation: Shaw Henriquez MD was contacted at 14:52, regarding admission, to the medical/surgical unit. patient's condition, and will see patient in ED, shortly. 02 12:03 Order name: Basic Metabolic Panel; Complete Time: 12:42 kb 05/26 12:03 Order name: CBC with Diff; Complete Time: 12:31 kb 05/26 12:03 Order name: CT Abd/Pelvis - W/Contrast; Complete Time: 14:42 kb 05/26 12:03 Order name: IV Saline Lock; Complete Time: 12:15 kb 05/26 12:03 Order name: Labs collected and sent; Complete Time: 12:15 kb Administered Medications: 12:25 Drug: NS 0.9% 1000 ml Route: IV; Rate: 1000 ml; Site: right antecubital; em 13:30 Follow up: IV Status: Completed infusion; IV Intake: 1000ml em 12:27 Drug: morphine 4 mg Route: IVP; Site: right antecubital; hb 13:30 Follow up: Response: No adverse reaction; Pain is decreased em 12:27 Drug: Zofran 4 mg Route: IVP; Site: right antecubital; hb 13:30 Follow up: Response: No adverse reaction em 14:30 Drug: morphine 4 mg Route: IVP; Site: right antecubital; em 14:59 Follow up: Response: No adverse reaction; Pain is decreased em 14:30 Drug: Zofran 4 mg Route: IVP; Site: right antecubital; em 15:00 Follow up: Response: No adverse reaction em 15:05 Drug: Flagyl 500 mg Volume: 100 ml; Route: IVPB; Rate: 200 ml/hr; Infused Over: 30 em mins; Site: right antecubital; 15:41 Follow up: Response: No adverse reaction; IV Status: Infusion continued upon admission; em IV Intake: 50ml 15:05 Drug: NS 0.9% 1000 ml Route: IV; Rate: 125 ml/hr; Site: right antecubital; em 15:40 Follow up: IV Status: Infusion continued upon admission; IV Intake: 50ml em 15:23 Drug: Dilaudid 0.5 mg Route: IVP; Site: right antecubital; hb 15:40 Follow up: Response: No adverse reaction; Pain is decreased em 15:39 Drug: Cipro 400 mg Volume: 200 ml; Route: IVPB; Infused Over: 60 mins; Site: right em antecubital; 15:40 Follow up: IV Status: Infusion continued upon admission em Disposition: 05/26/18 14:53 Hospitalization ordered by Shaw Henriquez for Observation. Preliminary diagnosis is Acute appendicitis. - Bed requested for Telemetry/MedSurg (observation). - Status is Observation. em - Condition is Stable. - Problem is new. - Symptoms are unchanged. UTI on Admission? No Addendum: 05/28/2018 07:37 Co-signature as Attending Physician, Jose Garg MD I agree with the assessment and c malik plan of care. Signatures: Dispatcher [employer] Alejandrina Lagos, WATCH REPAIRER APPRENTICE-C WATCH REPAIRER APPRENTICE-CkThaddeus Carias, RN RN Jose Garg MD MD cha Munoz, Edgar, SEED PELLETER SEED PELLETER em Ariadne Farooq, RN RN hb Corrections: (The following items were deleted from the chart) 05/26 15:46 14:53 Hospitalization Ordered by Shaw Henriquez MD for Observation. Preliminary diagnosis em is Acute appendicitis. Bed requested for Telemetry/MedSurg (observation). Status is Observation. Condition is Stable. Problem is new. Symptoms are unchanged. UTI on Admission? No. kb
--- NOTE | 2018-05-26 14:54 | ER ---
Nurse's Notes [facility] Name: Chris Sweeney Age: 58 yrs Sex: Male : 1960 Arrival Date: 05/26/2018 Time: 11:57 Bed 17 Private MD: Richard Moran Diagnosis: Acute appendicitis Presentation: 05/26 12:04 Presenting complaint: Patient states: RLQ pain, almost in the groin area, one location sg non radiating, described as sharp and stabbing reports is currently a 01/10, denies N/V/D/Fever at this time. Transition of care: patient was not received from another setting of care. Onset of symptoms was May 26, 2018. Risk Assessment: Do you want to hurt yourself or someone else? Patient reports no desire to harm self or others. Initial Sepsis Screen: Does the patient meet any 2 criteria? No. Patient's initial sepsis screen is negative. Does the patient have a suspected source of infection? Yes: Acute abdominal pain. Care prior to arrival: None. 12:04 Method Of Arrival: Ambulatory sg 12:04 Acuity: HOLLY 3 sg Triage Assessment: 12:05 General: Appears comfortable, well groomed, well developed, well nourished, Behavior is sg cooperative, appropriate for age, anxious, restless. Pain: Complains of pain in right lower quadrant Quality of pain is described as aching, sharp, stabbing. GI: Abdomen is round non-distended, obese, Reports lower abdominal pain. : Denies burning with urination, cramping discharge, inability to void, incontinence, pain urinary frequency, urgency. Historical: - Allergies: 12:09 No Known Allergies; sg - Home Meds: 12:09 aspirin 81 mg Oral TbEC 1 tab once daily [Active]; glipizide 10 mg oral tab 1 tab once sg daily [Active]; Protonix 40 mg Oral TbEC 1 tab once daily [Active]; lisinopril-hydrochlorothiazide 20-12.5 mg oral tab 1 tab once daily for Hypertension [Active]; Novolog Sub-Q 50 unit daily [Active]; Zoloft 25 mg oral tab 1 tab once daily [Active]; escitalopram oxalate 10 mg oral tab 1 tab once daily [Active]; metformin er 500 mg daily [Active]; - PMHx: 12:09 Diabetes - NIDDM; Hypertension; Renal Disease; sg - PSHx: 12:09 Vasectomy; colon resection; Hernia repair; sinus; sg - Immunization history:: Adult Immunizations up to date. - Social history:: Smoking status: Patient/guardian denies using tobacco. - Ebola Screening: : Patient negative for fever greater than or equal to 101.5 degrees Fahrenheit, and additional compatible Ebola Virus Disease symptoms Patient denies exposure to infectious person Patient denies travel to an Ebola-affected area in the 21 days before illness onset No symptoms or risks identified at this time. Screenin:25 Abuse screen: Denies threats or abuse. Nutritional screening: No deficits noted. em Tuberculosis screening: No symptoms or risk factors identified. Fall Risk None identified. Assessment: 12:25 General: Appears uncomfortable, Behavior is calm, cooperative, Denies fever. Pain: em Complains of pain in right lower quadrant Pain currently is 10 out of 10 on a pain scale. Quality of pain is described as sharp, stabbing, Pain began 1 day ago. Neuro: Level of Consciousness is awake, alert, obeys commands, Oriented to person, place, time, situation. Cardiovascular: Capillary refill < 3 seconds Patient's skin is warm and dry. Respiratory: Airway is patent Respiratory effort is even, unlabored, Respiratory pattern is regular, symmetrical. GI: Abdomen is round non-distended, Bowel sounds present X 4 quads. Abd is soft X 4 quads Abdomen is tender to palpation in right lower quadrant Patient currently denies nausea, vomiting. Derm: Skin is intact, is healthy with good turgor, Skin is pink, warm \T\ dry. normal. Musculoskeletal: Range of motion: intact in all extremities. 12:35 Reassessment: I agree with previous assessment. hb 12:45 Reassessment: finished drinking PO contrast, tolerated well, CT notified. em 12:58 Reassessment: Patient appears in no apparent distress at this time. Patient and/or em family updated on plan of care and expected duration. Pain level reassessed. Patient is alert, oriented x 3, equal unlabored respirations, skin warm/dry/pink. rates pain 4/10 Patient states symptoms have improved. 14:00 Reassessment: Patient appears in no apparent distress at this time. Patient and/or em family updated on plan of care and expected duration. Pain level reassessed. reports pain is coming back, provider notified, new medication orders received. 14:45 Reassessment: Patient appears in no apparent distress at this time. provider at bedside em discussing POC. 15:20 Reassessment: Patient appears in no apparent distress at this time. pt c/o pain rates em 610, provider notified, new medication orders received. Vital Signs: 12:05 BP 148 / 101; Pulse 89; Resp 17; Temp 97.2; Pulse Ox 98% on R/A; Weight 115.67 kg; Pain sg 10/10; 13:00 BP 149 / 88; Pulse 85; Resp 18; Pulse Ox 99% on R/A; Pain 4/10; em 14:00 BP 152 / 91; Pulse 92; Resp 18; Pulse Ox 99% on R/A; em 15:00 BP 136 / 89; Pulse 90; Resp 18; Pulse Ox 99% on R/A; Pain 5/10; em ED Course: 11:57 Patient arrived in ED. mr 11:57 Richard Moran MD is Private Physician. mr 11:59 Alejandrina Bell, [facility] kb 12:00 Jose Garg MD is Attending Physician. kb 12:05 Triage completed. sg 12:05 Arm band placed on. sg 12:12 Initial lab(s) drawn, by me, sent to lab. Inserted saline lock: 20 gauge in right dh3 antecubital area, using aseptic technique. Blood collected. 12:15 Greg Nair LVN is Primary Nurse. em 12:25 Patient has correct armband on for positive identification. Placed in gown. Bed in low em position. Call light in reach. Pulse ox on. NIBP on. 14:19 CT Abd/Pelvis - W/Contrast In Process Unspecified. EDMS 14:53 Shaw Henriquez MD is Hospitalizing Provider. kb 15:41 No provider procedures requiring assistance completed. Patient admitted, IV remains in em place. Administered Medications: 12:25 Drug: NS 0.9% 1000 ml Route: IV; Rate: 1000 ml; Site: right antecubital; em 13:30 Follow up: IV Status: Completed infusion; IV Intake: 1000ml em 12:27 Drug: morphine 4 mg Route: IVP; Site: right antecubital; hb 13:30 Follow up: Response: No adverse reaction; Pain is decreased em 12:27 Drug: Zofran 4 mg Route: IVP; Site: right antecubital; hb 13:30 Follow up: Response: No adverse reaction em 14:30 Drug: morphine 4 mg Route: IVP; Site: right antecubital; em 14:59 Follow up: Response: No adverse reaction; Pain is decreased em 14:30 Drug: Zofran 4 mg Route: IVP; Site: right antecubital; em 15:00 Follow up: Response: No adverse reaction em 15:05 Drug: Flagyl 500 mg Volume: 100 ml; Route: IVPB; Rate: 200 ml/hr; Infused Over: 30 em mins; Site: right antecubital; 15:41 Follow up: Response: No adverse reaction; IV Status: Infusion continued upon admission; em IV Intake: 50ml 15:05 Drug: NS 0.9% 1000 ml Route: IV; Rate: 125 ml/hr; Site: right antecubital; em 15:40 Follow up: IV Status: Infusion continued upon admission; IV Intake: 50ml em 15:23 Drug: Dilaudid 0.5 mg Route: IVP; Site: right antecubital; hb 15:40 Follow up: Response: No adverse reaction; Pain is decreased em 15:39 Drug: Cipro 400 mg Volume: 200 ml; Route: IVPB; Infused Over: 60 mins; Site: right em antecubital; 15:40 Follow up: IV Status: Infusion continued upon admission em Intake: 13:30 IV: 1000ml; Total: 1000ml. em 15:40 IV: 50ml; Total: 1050ml. em 15:41 IV: 50ml; Total: 1100ml. em Outcome: 14:53 Decision to Hospitalize by Provider. kb 15:41 Admitted to OR accompanied by nurse, via stretcher, with chart, Report called to olga Norton RN 15:41 Condition: good 15:41 Instructed on the need for admit, Demonstrated understanding of instructions. 15:46 Patient left the ED. em Signatures: Dispatcher [employer] EDMS Alejandrina Bell, GARNISHMENT SPECIALISTDamonC GARNISHMENT SPECIALIST-Thaddeus Bunch RN RN Alfred, Domi mr Greg Nair, ZOO CARETAKER ZOO CARETAKER em Ariadne Farooq RN RN Nayeli Hardin dh3 Corrections: (The following items were deleted from the chart) 14:46 13:00 BP 149 / 88; Pulse 85bpm; Resp 18bpm; Pulse Ox 99% RA; em em
[2018-05-26] MEDS ORDERED: METRONIDAZOLE 500mg IVPB 500 MG/100 ML BAG IV ONE (15:07)
[2018-05-26] MEDS ORDERED: CIPROFLOXACIN 400mg IV 400 MG/200 ML BAG IV ONE ×2 (15:07→16:05)
[2018-05-26] MEDS ORDERED: HYDROMORPHONE HCL 0.5 MG/0.5 ML INJ ONE (15:21)
[2018-05-26] MEDS ORDERED: BUPIVACAINE 0.5% PF 10 ML VIAL ONE (15:53)
[2018-05-26] MEDS ORDERED: SUCCINYLCHOLINE 20 MG/ML (10 ML) IV ONE (16:06)
[2018-05-26] MEDS ORDERED: MIDAZOLAM HCL 2 MG/2 ML INJ ONE (16:09)
[2018-05-26] MEDS ORDERED: ROCURONIUM 50 MG/5 ML VIAL IV ONE (16:09)
[2018-05-26] MEDS ORDERED: PROPOFOL 200 MG/20 ML VIAL IV ONE (16:09)
[2018-05-26] MEDS ORDERED: FENTANYL CITR 250 MCG/5 ML ONE (16:09)
[2018-05-26] MEDS ORDERED: NEOSTIGMINE 1 MG/ML -10 ML VIAL ONE (17:04)
[2018-05-26] MEDS ORDERED: GLYCOPYRROLATE 0.2 MG/ML SYR ONE (17:04)
[2018-05-26 18:01] VITALS: BMI 35.5
[2018-05-26] MEDS ORDERED: D5.45NS W/KCL 20MEQ 1,000 ML IV SCH (18:02)
[2018-05-26] MEDS ORDERED: ONDANSETRON 4 MG/2 ML VIAL IV PRN (18:02)
[2018-05-26] MEDS ORDERED: ACETAMINOPHEN 650MG/RECT SUPP PR PRN (18:02)
[2018-05-26] MEDS ORDERED: HYDROCODONE/APAP 7.5/325 MG TAB PO PRN (18:09)
[2018-05-26] MEDS: INSULIN -REGULAR HUMAN 50 UNIT/0.5 ML ML SQ SCH ×2 (18:41→20:16)
[2018-05-26] MEDS: MORPHINE 4 MG/ML SYR IV PRN (18:42)
[2018-05-26] MEDS: NACHLORIDE 0.45% 1,000 ML IV SCH (20:22)
[2018-05-26] MEDS: HYDROMORPHONE HCL 1 MG/ML INJ IV PRN (20:23)
[2018-05-26 20:37] LABS: Urine Appearance CLEAR; Urine Bilirubin NEGATIVE (NEG); Urine Blood NEGATIVE (NEG); Urine Color YELLOW; Urine Glucose TRACE (NEG); Urine Protein NEGATIVE (NEG); Urine Specific Gravity >=1.030 (1.005-1.030); Urine Urobilinogen 0.2 mg/dL (0.2-1.0)
[2018-05-26 20:41] LABS: Urine Microscopic Reflex NO UMIC
--- NOTE | 2018-05-26 20:57 | PREOPCON ---
Date of Consultation: 05/26/2018 Chief Complaint: Abdominal pain. History Of Present Illness: The patient is a 58-year-old gentleman who stated that last night he sta rted having crampy pain, periumbilical in nature, localizing to the right lower quadrant. Denies any nausea, vomiting, or anorexia. No diarrhea or constipation. No blood in his stool. No dysuria or hematuria. No sore throat, runny nose, cough, headaches, or dizziness. No chest pain. No fever or chills. Review of Systems: Otherwise unremarkable. Past Medical History: Significant for hypertension, type 2 diabetes, Alvarez esophagus, and history of diverticulosis and diverticulitis. Past Surgical History: Sigmoid resection for diverticulitis, perforated in 2010. No colostomy. The patient had subsequently a hernia repair with mesh done. Allergies: NO ALLERGIES. Social History: He does not smoke. Drinks occasionally. Family History: Noncontributory. Physical Examination: Vital Signs: Stable. He is afebrile. He is awake, alert, orient x3. Head and Neck: Cranial nerves 2 through 12 are grossly within normal limits. No neck masses. No JV D. Throat clear. Neck is supple. Chest: Clear. Heart: S1, S2. Abdomen: Soft, nondistended. Positive bowel sounds. Positive right lower quadrant tenderness with rebound. Bowel rigidity. No guarding. Extremities: Adequately perfused. Nontender. Neuro: Nonfocal. Laboratory Data: White count 15.1. CT of the abdomen and pelvis reviewed. Essentially, the patient has an acute appendicitis. However, he does have thickening of the tip of the cecum. Please note, patient recently had a colonoscopy and EGD, both were which negative. Assessment: Acute appendicitis. Plan: Admit n.p.o., IV fluid, IV antibiotic, to the OR for laparoscopic appendectomy, possible open. The patient understands the risks, benefits, and alternatives and agrees to procedure. /MODL Voice ID: [id number] Report ID: [id number]
[2018-05-26] MEDS ORDERED: D50W 25 GM/50 ML SYRINGE IV PRN (21:45)
[2018-05-26] MEDS ORDERED: GLUCAGON 1 MG/VIAL IM PRN (21:45)
[2018-05-27] MEDS: HYDROMORPHONE HCL 1 MG/ML INJ IV PRN ×5 (00:26→20:09)
[2018-05-27] MEDS: METRONIDAZOLE 500mg IVPB 500 MG/100 ML BAG IV SCH ×3 (00:27→17:17)
--- NOTE | 2018-05-27 02:36 | HP ---
Date of Admission: 05/26/2018 Consultants: Dr. Barton. Chief Complaint: Episode of right lower quadrant abdominal pain. History Of Present Illness: The patient is a 58-year-old male with a past medical history of hyperte nsion, diabetes, GERD, and diverticulitis, comes in today with a couple-day onset of right lower quad rant abdominal pain. The patient does report some nausea, no vomiting, and decreased appetite. The patient's pain was sharp, nonradiating. No significant alleviating factors. The patient came into [facility] ER for further evaluation. His symptoms were moderate, progressive, and constant. In the ER, his workup revealed a white count of 15,000. CT scan showed appendicitis. The patient was given IV flu ids, IV antibiotics, and Dr. Barton was consulted by the ER. The patient was then recommended to go t o the OR for appendectomy. When seen in the ER, the patient was awake, alert, and oriented x3, in so me mild distress, improved with pain medications. Past Medical History: Hypertension; hyperlipidemia; diabetes mellitus type 2, non insulin dependent; diverticulitis. Past Surgical History: Partial right hemicolectomy, vasectomy with reversal. The patient had recent colonoscopy and EGD, found to have Alvarez's esophagus and multiple dark diverticula without bleedin g. Allergies: NO KNOWN DRUG ALLERGIES. Medications: List reviewed. Social History: The patient denies any tobacco use or illicit drug use. Does drink an occasional be er. He is a retired [employer] . Family History: Positive for coronary artery disease in both parents. Review of Systems: An 11-point system reviewed, negative except as per HPI. Physical Examination: Vital Signs: Blood pressure 148/101, pulse 89, respirations 17, temperature 97.2, and O2 98% on room air. General: Awake, alert, and oriented x3, ill-appearing male, obese. HEENT: Normocephalic, atraumatic. PERRLA. EOMI. Dry mucous membranes. Oropharynx is clear. Conj unctivae are anicteric. Neck: Supple. No JVD. Trachea midline. CV: S1, S2. Regular rate and rhythm. Peripheral pulses are present. Respiratory: Clear to auscultation bilaterally. No wheezing or stridor. No use of accessory muscle s. Gastrointestinal: Abdomen is soft, mildly distended. Tenderness to palpation in the right lower jesus drant with voluntary guarding and rebound tenderness. No rigidity. Bowel sounds hypoactive. Extremities: No clubbing, cyanosis, or edema. No calf tenderness. Neuro: Cranial nerves 2-12 intact grossly. No focal neurological deficit. Speech is normal. Laboratory Data: WBC 15.2, H and H 16.6 and 48.2, and platelets 307. Sodium 136, potassium 3.9, chl oride 100, CO2 29, BUN 14, creatinine 1.12, glucose 192, and calcium 9.4. CT scan of the abdomen and pelvis shows acute appendicitis with significant fluid and stranding in the surrounding fatty tissue . No air extravasation of contrast or other findings of elizabeth perforation. Significance of circumfe rential wall thickening is present at the tip of the cecum. Few reactive-type lymph nodes are presen t in the periappendiceal fat. Appendix is in classic right lower quadrant location. Diffuse fatty i nfiltration of the liver. Assessment And Plan: A 58-year-old male with: 1.Acute appendicitis. We will continue with IV antibiotics, pain control, n.p.o. The patient will schedule for a surgery urgently by Dr. Barton. 2.Lower quadrant abdominal pain secondary to above. 3.Essential hypertension, stable. We will resume home medications as appropriate. 4.Dyslipidemia. Continue statins. 5.Diabetes mellitus type 2, non insulin requiring with hyperglycemia. We will start on sliding scal e insulin and monitor Accu-Cheks. Admit the patient to Med-Surg, place as an inpatient. Length of stay, greater than 2 midnights. TYLER Voice ID: [id number]
--- NOTE | 2018-05-27 02:52 | OP ---
Date of Procedure: 05/26/2018 Surgeon: Kyler Barton MD Preoperative Diagnosis: Acute appendicitis. Postoperative Diagnosis: Acute appendicitis. Procedure: Laparoscopic appendectomy. Estimated Blood Loss: Minimal. Specimen: Appendix. Findings: As above. Anesthesia: General. Complications: None. Disposition: The patient tolerated the procedure in stable condition, taken to recovery in good gene ral condition. Description Of Procedure: The patient was brought to the OR and placed in supine position. General anesthesia was begun. The patient was prepped and draped in usual sterile fashion. Marcaine 0.5% wa s infiltrated locally and a 15-blade was used to make a 1-cm incision in the epigastrium just to the right of midline as the patient has had multiple midline surgeries in the past and the mesh repair fo r hernia. Subcutaneous tissue was divided. The fascia was identified and divided. A #1 Vicryl stay suture was placed. Peritoneal cavity was entered with sharp and blunt dissection. A 12-mm trocar w as placed into the peritoneal cavity under direct vision. Pneumoperitoneum was established. There w ere adhesions in the midline and then 2 trocars were placed, 1 in the left lower quadrant and 1 in th e suprapubic region. Laparoscopy revealed acute suppurative appendicitis. The base of the appendix and the mesoappendix were identified, which was edematous. Endo-RASHAAD stapling device was used rene ty to divide the mesoappendix and base of the appendix on the cecum and then the appendix was retr ieved through the umbilicus via an EndoCatch bag. Right lower quadrant was irrigated. Effluent was clear. No evidence of bleeding or bowel injury appreciated. Subsequently, all trocars were removed under direct vision. Stay sutures were tied to each other across the fascial defect. Subcutaneous w ounds were irrigated and bleeding was controlled cautery. A 3-0 chromic was used to approximate subc utaneous tissue, and majo were used to close the skin. Sterile dressing was applied. The patient was awakened and taken to recovery in good general condition. TOM/MODL Voice ID: [id number] Report ID: [id number]
[2018-05-27] MEDS: CIPROFLOXACIN 400mg IV 400 MG/200 ML BAG IV SCH ×2 (04:12→17:18)
[2018-05-27 05:11] LABS: Absolute Lymphocytes (CBC) 1.6 K/uL (0.7-4.9); Absolute Monocytes 0.8 K/uL (0.1-1.3); Absolute Neutrophil 7.7 K/uL (1.8-8.0); Basophils % 0.3 % (0-1.3); Eosinophils % 1.3 % (0-4.4); Hematocrit 42.2 % (39.6-49.0); Lymphocytes % 15.3 % (15.3-44.8); MPV 9.2 fL (7.6-11.3); RBC Red Blood Cell Count 4.73 M/uL (4.33-5.43)
[2018-05-27 05:32] LABS: Albumin 3.3 g/dL (3.4-5.0); Bilirubin Total 0.8 mg/dL (0.2-1.0); Magnesium 1.7 mg/dL (1.8-2.4); Phosphorus 2.9 mg/dL (2.5-4.9); Potassium 3.5 mmol/L (3.5-5.1); Protein, Total 6.8 g/dL (6.4-8.2)
[2018-05-27] MEDS ORDERED: POTASSIUM CL SA 10 MEQ TAB PO ONE (06:10)
[2018-05-27] MEDS ORDERED: MAGNESIUM SULFATE 1 gm IVPB 1 GM/100 ML BAG IV ONE (06:11)
[2018-05-27] MEDS: INSULIN -REGULAR HUMAN 50 UNIT/0.5 ML ML SQ SCH ×4 (07:30→21:00)
[2018-05-27] MEDS: INSULIN GLARGINE 100 UNITS/ML SQ SCH (08:26)
[2018-05-27] MEDS: LISINOPRIL 20 MG TAB PO SCH (08:27)
[2018-05-27] MEDS: SERTRALINE HCL 50 MG TAB PO SCH (08:28)
[2018-05-27] MEDS: GLIPIZIDE S.A. 5 MG TAB PO SCH (08:28)
[2018-05-27] MEDS: PANTOPRAZOLE 40MG TABLET PO SCH (08:28)
[2018-05-27] MEDS: ASPIRIN 81 MG CHEWABLE TABLET PO SCH (08:28)
[2018-05-27] MEDS: ESCITALOPRAM 20 MG TAB PO SCH (08:29)
[2018-05-27] MEDS: NACHLORIDE 0.45% 1,000 ML IV SCH ×2 (08:30→12:00)
--- NOTE | 2018-05-27 11:54 | PN ---
Subjective: The patient is awake and alert, feels better. He had urinary retention after surgery ye sterday. Had to have a catheter placed. He is tolerating a diet. Objective: Vital signs: Stable, afebrile. Abdomen: Slightly distended, but no significant tenderness. Dressing is clean, dry, and intact. Laboratory Data: White count is normal. Assessment: Status post laparoscopic appendectomy, urinary retention. Recommendations: Continue Shipman today. We will discontinue it at midnight, if he is able to void in the morning. The patient will be able to go home on oral antibiotics. Continue IV antibiotics as o rdered. Encourage ambulation, incentive spirometry. /MODL Voice ID: [id number] Report ID: [id number]
[2018-05-27 14:40] LABS: Urine Appearance CLEAR; Urine Bilirubin NEGATIVE (NEG); Urine Blood 2+ (NEG); Urine Color YELLOW; Urine Glucose 1+ (NEG); Urine Protein NEGATIVE (NEG); Urine Urobilinogen 0.2 mg/dL (0.2-1.0)
[2018-05-27 15:08] LABS: Urine Bacteria <20 /HPF (NONE SEEN); Urine Culture Reflex Order REFLEXED
--- NOTE | 2018-05-27 17:57 | PN ---
Date of Progress Note: 05/27/2018 Subjective: The patient is seen and examined. Chart reviewed, and case discussed with RN and Dr. Marie frias. The patient states pain has improved. Did have some burning with urination and had difficult F oley catheter placement. The patient does have some urinary retention. Medications: List reviewed. Physical Examination: Vital Signs: Temperature 97.5, heart rate 78, blood pressure 120/71, respirations 18, O2 of 96% on r oom air. General: Awake, alert, oriented x3. Mild distress due to pain. Obese. CV: S1 and S2. Regular rate and rhythm. Peripheral pulses present. Respiratory: Moving air well bilaterally. No wheezing. Gastrointestinal: Abdomen is soft. Mild tenderness to palpation around the incision site. Nondiste nded. Positive bowel sounds. Extremities: No clubbing, cyanosis, or edema. Neurologic: Nonfocal. Laboratory Data: Sodium 134, potassium 3.5, chloride 98, CO2 of 28, BUN 10, creatinine 0.94, glucose 194, calcium 8.2, magnesium 1.7. WBC 10.2, H and H 14.6 and 42.2, platelets 241. Assessment: A 58-year-old male with: 1.Acute appendicitis. Continue IV antibiotics and pain control. The patient is not tolerating his diet. Appreciate Dr. Barton's input. 2.Right lower quadrant abdominal pain, resolved, secondary to above. 3.Acute urinary retention, now has Shipman catheter placement. We will discontinue Shipman catheter ton ight, and if voids, we will discharge in a.m. 4.Essential hypertension, stable. 5.Dyslipidemia. Continue statin. 6.Diabetes mellitus type 2, non-insulin requiring, with hyperglycemia. We will continue sliding sca le insulin. Plan: As above. SA/MODL Voice ID: [id number] Report ID: [id number]
[2018-05-28] MEDS: METRONIDAZOLE 500mg IVPB 500 MG/100 ML BAG IV SCH ×2 (00:52→09:20)
[2018-05-28] MEDS: NACHLORIDE 0.45% 1,000 ML IV SCH (00:52)
[2018-05-28] MEDS: MORPHINE 4 MG/ML SYR IV PRN (00:58)
[2018-05-28] MEDS: CIPROFLOXACIN 400mg IV 400 MG/200 ML BAG IV SCH (04:17)
[2018-05-28 04:24] LABS: Absolute Lymphocytes (CBC) 1.6 K/uL (0.7-4.9); Absolute Monocytes 0.9 K/uL (0.1-1.3); Absolute Neutrophil 7.6 K/uL (1.8-8.0); Basophils % 0.3 % (0-1.3); Eosinophils % 2.1 % (0-4.4); Hematocrit 40.7 % (39.6-49.0); Lymphocytes % 15.5 % (15.3-44.8); MPV 9.3 fL (7.6-11.3); Monocytes % 8.5 % (3.3-12.3); RBC Red Blood Cell Count 4.57 M/uL (4.33-5.43)
[2018-05-28 04:38] LABS: Albumin 3.1 g/dL (3.4-5.0); Bilirubin Total 0.6 mg/dL (0.2-1.0); Potassium 3.6 mmol/L (3.5-5.1); Protein, Total 6.6 g/dL (6.4-8.2)
[2018-05-28 06:57] LABS: Magnesium 2.3 mg/dL (1.8-2.4)
[2018-05-28] MEDS: INSULIN -REGULAR HUMAN 50 UNIT/0.5 ML ML SQ SCH (07:30)
[2018-05-28 08:48] VITALS: TEMP 97.8
[2018-05-28] MEDS ORDERED: POTASSIUM 25 MEQ EFFERV TAB PO ONE (09:00)
[2018-05-28] MEDS: INSULIN GLARGINE 100 UNITS/ML SQ SCH (09:20)
[2018-05-28] MEDS: ASPIRIN 81 MG CHEWABLE TABLET PO SCH (09:21)
[2018-05-28] MEDS: PANTOPRAZOLE 40MG TABLET PO SCH (09:21)
[2018-05-28] MEDS: SERTRALINE HCL 50 MG TAB PO SCH (09:21)
[2018-05-28] MEDS: GLIPIZIDE S.A. 5 MG TAB PO SCH (09:22)
[2018-05-28] MEDS: ESCITALOPRAM 20 MG TAB PO SCH (09:27)
[2018-05-28] MEDS: LISINOPRIL 20 MG TAB PO SCH (09:27)
[2018-05-28 09:31] VITALS: BP 128/86
[2018-05-28 09:41] VITALS: O2SAT 95
--- NOTE | 2018-05-28 15:41 | PN ---
Date of Progress Note: 05/28/2018 Subjective: The patient is awake, alert. No complaint. Objective: Vital Signs: Stable, afebrile. : Was able to void after the Shipman was removed. Abdomen: Benign Laboratory Data: White count is normal. Assessment: Status post laparoscopic appendectomy and urinary retention. Recommendations: The patient cleared from surgery for discharge. Cipro and Flagyl as ordered. Woun d care as ordered. Followup in my office in 1 week. Call for appointment. TOM/MARY JO Voice ID: [id number] Report ID: [id number]
--- NOTE | 2018-05-29 05:42 | DS ---
Date of Discharge: 05/28/2018 Pattern Duplicator: Kyler Barton M.D., with General Surgery. Procedures: On 05/26/2018, laparoscopic appendectomy. Admitting Diagnoses: 1.Acute appendicitis. 2.Right lower quadrant abdominal pain. 3.Essential hypertension. 4.Dyslipidemia. 5.Diabetes mellitus type 2, insulin-requiring, with hyperglycemia. Discharge Diagnoses: 1.Acute appendicitis, status post laparoscopic appendectomy, doing well. 2.Right lower quadrant abdominal pain, resolved, secondary to acute appendicitis. 3.Acute urinary retention, resolved, able to void on his own. 4.Essential hypertension, stable. 5.Dyslipidemia, statin. 6.Diabetes mellitus type 2, qer-mqlgrdw-iyudmpkhf with hyperglycemia. 7.Obesity, body mass index 35.6. 8.Gastroesophageal reflux disease without esophagitis. 9.History of diverticulosis. Hospital Course: The patient is a 58-year-old male, who came in with episode of right lower quadrant abdominal pain, found to have acute appendicitis. He did have an elevated white count and pain in t he right lower quadrant. The patient was admitted and started on IV fluids and IV antibiotics. He w as kept n.p.o. Dr. Barton of General Surgery was consulted, and the patient was taken for laparoscopi c appendectomy. The patient did well postoperatively. Postoperatively, he was able to ambulate. He is doing well with his diet. The patient did have some burning on urination, had difficult Shipman ca theter placement, and urinary retention. The patient's urinary catheter was removed, and he was able to void on his own. White blood cell count normalized. His urine culture showed no growth. The pa tient was then cleared for discharge, and was sent home in a stable condition. Activity: As tolerated. No lifting over 10 pounds. Medications: As per medication reconciliation list. Finish up course of antibiotics. No driving or operating heavy machinery while on narcotics. Diet: Heart healthy. Followup: Follow up with primary care physician in 2 to 3 days. Follow up with surgeon, Dr. Barton, in 7 to 10 days for wound check. Return to ER for worsening condition. Return to work on 05/30/2018 . Restart metformin 48 hours post contrast on 05/29/2018. Other wound care instructions per Surgery . Keep the wound clean and dry. Physical Examination: General: Awake, alert, oriented x3, not in acute distress. CV: S1, S2. No murmurs. Respiratory: Moving air well bilaterally. Abdomen: Soft, nontender, nondistended. Positive bowel sounds. Extremities: No clubbing, cyanosis, or edema. Neurologic: Nonfocal. Total time spent discharging the patient was 39 minutes. /MARY JO Voice ID: [id number] Report ID: [id number]
== END 2018-05-28 11:26 | disposition home or self-care (01) | DRG 343 ==
LOC: ER 11:54 → ERHOLD 15:10 → 4TH 16:40
PROVIDERS: ADMIT Family Medicine; ATTEND Family Medicine
PROC: 0DTJ4ZZ Resection of Appendix, Percutaneous Endoscopic Approach (ICD-10-PCS; principal; 2018-05-26 15:00)
DX: K35.80 Unspecified acute appendicitis (principal); I10 Essential (primary) hypertension; E78.5 Hyperlipidemia, unspecified; E11.65 Type 2 diabetes mellitus with hyperglycemia; Z79.4 Long term (current) use of insulin; R33.9 Retention of urine, unspecified; K21.9 Gastro-esophageal reflux disease without esophagitis; E66.9 Obesity, unspecified; Z68.35 Body mass index [BMI] 35.0-35.9, adult; K22.70 Barrett's esophagus without dysplasia; K57.90 Diverticulosis of intestine, part unspecified, without perforation or abscess without bleeding; K66.0 Peritoneal adhesions (postprocedural) (postinfection)
CPT/HCPCS: 36415; 74177; 80048; 80053; 81001; 81003; 82962; 83735; 84100; 85025; 87086; 87088; 88304; 94760; 96361; 96365; 96375; 99285; J0330; J0744; J1170; J2250; J2405; J2704; J2710; J3010; J3475; J7030; Q9967

== ENCOUNTER 2019-07-08 15:48 | Emergency (ER) | payer OTHER ==
[2019-07-08 17:31] LABS: Potassium 2.7 mmol/L (3.5-5.1)
[2019-07-08] MEDS ORDERED: POTASSIUM 25 MEQ EFFERV TAB ONE ×2 (17:39→18:55)
[2019-07-08] MEDS ORDERED: KCL 20 MEQ/100 mL IVPB 20 MEQ/100 ML BAG IV ONE (17:46)
[2019-07-08] MEDS ORDERED: NA CHLORIDE 0.9% 1,000 ML ONE (17:46)
[2019-07-08 17:47] LABS: Phosphorus 2.7 mg/dL (2.5-4.9)
--- NOTE | 2019-07-08 18:24 | EDPHYS ---
Physician Documentation [facility] Name: Chris Sweeney Age: 59 yrs Sex: Male : 1960 Arrival Date: 07/08/2019 Time: 15:50 Bed 23 Private MD: Jose Horn HPI: 07/07 16:25 This 59 yrs old Male presents to ER via Ambulatory with complaints of kb Abnormal Lab Results. 16:27 Pt reports he had routine labs done this morning, [facility] 1500 and said to kb come to the ER for potassium replacement because it was 2.2. Pt denies any complaints. Onset: The symptoms/episode began/occurred today. The patient has not experienced similar symptoms in the past. The patient has not recently seen a physician. Historical: - Home Meds: 15:56 glipizide 10 mg Oral tab 1 tab 2 times per day [Active]; lisinopril-hydrochlorothiazide aa5 20-12.5 mg Oral tab 1 tab once daily for Hypertension [Active]; escitalopram oxalate 10 mg Oral tab 1 tab once daily [Active]; metformin er twice a day [Active]; Omeprazole Oral [Active]; aspirin 81 mg Oral TbEC 1 tab once daily [Active]; Zoloft 25 mg Oral tab 1 tab once daily [Active]; empagliflozin oral 12.5mg oral once daily [Active]; - PMHx: 15:56 Diabetes - NIDDM; Hypertension; Renal Disease; aa5 - PSHx: 15:56 Vasectomy; colon resection; Hernia repair; sinus; aa5 - Immunization history:: Pneumococcal vaccine is up to date, Flu vaccine is up to date. - Social history:: Smoking status: Patient denies any tobacco usage or history of. ROS: 16:24 Constitutional: Negative for fever, chills, and weight loss, ENT: Negative for injury, kb pain, and discharge, Neck: Negative for injury, pain, and swelling, Cardiovascular: Negative for chest pain, palpitations, and edema, Respiratory: Negative for shortness of breath, cough, wheezing, and pleuritic chest pain, Abdomen/GI: Negative for abdominal pain, nausea, vomiting, diarrhea, and constipation, Back: Negative for injury and pain, MS/Extremity: Negative for injury and deformity, Skin: Negative for injury, rash, and discoloration, Neuro: Negative for headache, weakness, numbness, tingling, and seizure. Exam: 16:24 Constitutional: This is a well developed, well nourished patient who is awake, alert, kb and in no acute distress. Head/Face: Normocephalic, atraumatic. ENT: Nares patent. No nasal discharge, no septal abnormalities noted. Tympanic membranes are normal and external auditory canals are clear. Oropharynx with no redness, swelling, or masses, exudates, or evidence of obstruction, uvula midline. Mucous membranes moist. Neck: Trachea midline, no thyromegaly or masses palpated, and no cervical lymphadenopathy. Supple, full range of motion without nuchal rigidity, or vertebral point tenderness. No Meningismus. Chest/axilla: Normal chest wall appearance and motion. Nontender with no deformity. No lesions are appreciated. Cardiovascular: Regular rate and rhythm with a normal S1 and S2. No gallops, murmurs, or rubs. Normal PMI, no JVD. No pulse deficits. Respiratory: Lungs have equal breath sounds bilaterally, clear to auscultation and percussion. No rales, rhonchi or wheezes noted. No increased work of breathing, no retractions or nasal flaring. Abdomen/GI: Soft, non-tender, with normal bowel sounds. No distension or tympany. No guarding or rebound. No evidence of tenderness throughout. Skin: Warm, dry with normal turgor. Normal color with no rashes, no lesions, and no evidence of cellulitis. MS/ Extremity: Pulses equal, no cyanosis. Neurovascular intact. Full, normal range of motion. Neuro: Awake and alert, GCS 15, oriented to person, place, time, and situation. Cranial nerves II-XII grossly intact. Motor strength 5/5 in all extremities. Sensory grossly intact. Cerebellar exam normal. Normal gait. 16:26 ECG was reviewed by the Attending Physician. kb Vital Signs: 15:57 BP 156 / 87; Pulse 82; Resp 18 S; Temp 98.9(TE); Pulse Ox 97% on R/A; Weight 107.95 kg aa5 (R); Height 5 ft. 11 in. (180.34 cm) (R); Pain 0/10; 17:56 BP 115 / 82; Pulse 73; Resp 18; Pain 0/10; ll1 19:00 BP 121 / 8; Pulse 70; Resp 17; Temp 98.0; Pulse Ox 97% ; Pain 0/10; ll1 15:57 Body Mass Index 33.19 (107.95 kg, 180.34 cm) aa5 MDM: 16:01 Patient medically screened. [facility] 16:19 Data reviewed: vital signs, nurses notes. Data interpreted: Pulse oximetry: on room air kb is 97 %. Interpretation: normal. 18:23 Counseling: I had a detailed discussion with the patient and/or guardian regarding: the kb historical points, exam findings, and any diagnostic results supporting the discharge/admit diagnosis, lab results, the need for outpatient follow up, a family practitioner, to return to the emergency department if symptoms worsen or persist or if there are any questions or concerns that arise at home. 07/07 16:13 Order name: Basic Metabolic Panel; Complete Time: 17:49 kb 07/07 17:38 Order name: Add On-Lab ss 07/07 17:39 Order name: Phosphorus; Complete Time: 17:49 EDMS 07/07 16:13 Order name: EKG; Complete Time: 16:14 kb 07/07 16:13 Order name: EKG - Nurse/Tech; Complete Time: 16:23 kb 07/07 16:15 Order name: IV Start; Complete Time: 16:23 kb EC:26 Rate is 74 beats/min. Rhythm is regular. QRS Parnell is Normal. FL interval is normal at kb 108 msec. QRS interval is normal at 90 msec. QT interval is normal at 386 msec. Administered Medications: 17:38 Drug: Potassium Effervescent Tablet 50 mEq Route: PO; ll1 18:10 Follow up: Response: No adverse reaction vc 17:53 Drug: Potassium Chloride 20 mEq Route: IV; Rate: calculated rate; Site: left ll1 antecubital; 18:53 Follow up: Response: No adverse reaction; RASS: Alert and Calm (0); IV Status: ll1 Completed infusion; IV Intake: 100ml 17:53 Drug: NS 0.9% 1000 ml Route: IV; Rate: 1000 ml; Site: left antecubital; ll1 18:53 Follow up: Response: No adverse reaction; RASS: Alert and Calm (0); IV Status: IV ll1 converted to saline lock; IV Intake: 400ml 18:52 Drug: Potassium Effervescent Tablet 50 mEq Route: PO; ll1 19:00 Follow up: Response: No adverse reaction; RASS: Alert and Calm (0) ll1 Disposition: 07/08 07:41 Co-signature as Attending Physician, Jose Garg MD I agree with the assessment and aaron plan of care. Disposition: 07/08/19 18:24 Discharged to Home. Impression: Hypokalemia. - Condition is Stable. - Discharge Instructions: Potassium Content of Foods, Hypokalemia. - Medication Reconciliation Form, Thank You Letter, Antibiotic Education, Prescription Opioid Use, Work release form form. - Follow up: Emergency Department; When: As needed; Reason: Worsening of condition. Follow up: Private Physician; When: 2 - 3 days; Reason: Recheck today's complaints, Continuance of care, Re-evaluation by your physician. Signatures: Dispatcher [employer] EDMS Alejandrina Bell, SOLAR INSTALLER TECHNICIAN-C CHIDI-Jose Stafford MD MD cha Calderon, Audri RN RN aa5 Suellen Dunham RN RN ss Lewis, Lynsay, RN RN ll1 Deborah Mcgowan RN vc Corrections: (The following items were deleted from the chart) 07/07 18:54 18:24 07/08/2019 18:24 Discharged to Home. Impression: Hypokalemia. Condition is ss Stable. Forms are Medication Reconciliation Form, Thank You Letter, Antibiotic Education, Prescription Opioid Use. Follow up: Emergency Department; When: As needed; Reason: Worsening of condition. Follow up: Private Physician; When: 2 - 3 days; Reason: Recheck today's complaints, Continuance of care, Re-evaluation by your physician. kb
--- NOTE | 2019-07-08 18:24 | ER ---
Nurse's Notes [facility] Name: Chris Sweeney Age: 59 yrs Sex: Male : 1960 Arrival Date: 07/08/2019 Time: 15:50 Bed 23 Private MD: Diagnosis: Hypokalemia Presentation: 07/07 15:53 Chief complaint: Patient states: "I had my blood drawn today and [facility] and [facility]5 said my potassium was 2.2 and to go to the ER". Pt denies symptoms. Coronavirus screen: Proceed with normal triage. Ebola Screen: Patient negative for fever greater than or equal to 101.5 degrees Fahrenheit, and additional compatible Ebola Virus Disease symptoms. Initial Sepsis Screen: Does the patient meet any 2 criteria? No. Patient's initial sepsis screen is negative. Does the patient have a suspected source of infection? No. Patient's initial sepsis screen is negative. Risk Assessment: Do you want to hurt yourself or someone else? Patient reports no desire to harm self or others. Onset of symptoms was July 08, 2019. 15:53 Method Of Arrival: Ambulatory aa5 15:53 Acuity: HOLLY 3 aa5 Historical: - Home Meds: 15:56 glipizide 10 mg Oral tab 1 tab 2 times per day [Active]; lisinopril-hydrochlorothiazide aa5 20-12.5 mg Oral tab 1 tab once daily for Hypertension [Active]; escitalopram oxalate 10 mg Oral tab 1 tab once daily [Active]; metformin er twice a day [Active]; Omeprazole Oral [Active]; aspirin 81 mg Oral TbEC 1 tab once daily [Active]; Zoloft 25 mg Oral tab 1 tab once daily [Active]; empagliflozin oral 12.5mg oral once daily [Active]; - PMHx: 15:56 Diabetes - NIDDM; Hypertension; Renal Disease; aa5 - PSHx: 15:56 Vasectomy; colon resection; Hernia repair; sinus; aa5 - Immunization history:: Pneumococcal vaccine is up to date, Flu vaccine is up to date. - Social history:: Smoking status: Patient denies any tobacco usage or history of. Screenin:29 Abuse screen: Denies threats or abuse. Nutritional screening: No deficits noted. ll1 Tuberculosis screening: No symptoms or risk factors identified. Fall Risk None identified. IV access (20 points). Total Black Fall Scale indicates No Risk (0-24 pts). Assessment: 16:28 General: Appears in no apparent distress. Behavior is calm, cooperative. General: ll1 States he was told to come in because his potassium was low.. Pain: Denies pain. Neuro: No deficits noted. Cardiovascular: No deficits noted. Respiratory: No deficits noted. GI: No deficits noted. 17:15 Reassessment: Patient appears in no apparent distress at this time. No changes from ll1 previously documented assessment. Patient and/or family updated on plan of care and expected duration. Pain level reassessed. Patient is alert, oriented x 3, equal unlabored respirations, skin warm/dry/pink. 17:56 Reassessment: Patient appears in no apparent distress at this time. No changes from ll1 previously documented assessment. Patient and/or family updated on plan of care and expected duration. Pain level reassessed. Patient is alert, oriented x 3, equal unlabored respirations, skin warm/dry/pink. Vital Signs: 15:57 BP 156 / 87; Pulse 82; Resp 18 S; Temp 98.9(TE); Pulse Ox 97% on R/A; Weight 107.95 kg aa5 (R); Height 5 ft. 11 in. (180.34 cm) (R); Pain 0/10; 17:56 BP 115 / 82; Pulse 73; Resp 18; Pain 0/10; ll1 19:00 BP 121 / 8; Pulse 70; Resp 17; Temp 98.0; Pulse Ox 97% ; Pain 0/10; ll1 15:57 Body Mass Index 33.19 (107.95 kg, 180.34 cm) aa5 ED Course: 15:50 Patient arrived in ED. mr 15:54 Triage completed. aa5 15:54 Arm band placed on. aa5 15:55 Alejandrina Bell FNP-C [facility]. kb 15:55 Jose Garg MD is Attending Physician. kb 16:10 Robert Cummings, KEVAN is Primary Nurse. ll1 16:20 Initial lab(s) drawn, by me, sent to lab. EKG done, by ED staff, reviewed by Alejandrina DUDLEY. Inserted saline lock: 20 gauge in right antecubital area, using aseptic technique. Blood collected. 16:29 Patient has correct armband on for positive identification. Bed in low position. Call ll1 light in reach. Side rails up X 1. 17:57 Primary Nurse role handed off by Robert Cummings, KEVAN 17:57 Deborah Mcgowan, RN is Primary Nurse. 17:57 No provider procedures requiring assistance completed. ll1 18:05 Add On-Lab Sent. jp3 18:54 IV discontinued, intact, bleeding controlled, No redness/swelling at site. Pressure ss dressing applied. Administered Medications: 17:38 Drug: Potassium Effervescent Tablet 50 mEq Route: PO; ll1 18:10 Follow up: Response: No adverse reaction vc 17:53 Drug: Potassium Chloride 20 mEq Route: IV; Rate: calculated rate; Site: left ll1 antecubital; 18:53 Follow up: Response: No adverse reaction; RASS: Alert and Calm (0); IV Status: ll1 Completed infusion; IV Intake: 100ml 17:53 Drug: NS 0.9% 1000 ml Route: IV; Rate: 1000 ml; Site: left antecubital; ll1 18:53 Follow up: Response: No adverse reaction; RASS: Alert and Calm (0); IV Status: IV ll1 converted to saline lock; IV Intake: 400ml 18:52 Drug: Potassium Effervescent Tablet 50 mEq Route: PO; ll1 19:00 Follow up: Response: No adverse reaction; RASS: Alert and Calm (0) ll1 Intake: 18:53 IV: 100ml; Total: 100ml. ll1 18:53 IV: 400ml; Total: 500ml. ll1 Outcome: 18:24 Discharge ordered by MD. cho 18:54 Discharged to home ambulatory. 18:54 Condition: good 18:54 Discharge instructions given to patient, Instructed on discharge instructions, follow up and referral plans. Demonstrated understanding of instructions, follow-up care, medications. 18:54 Patient left the ED. Signatures: Alejandrina Bell, THEATRE INSTRUCTOR-C THEATRE INSTRUCTOR-Maritza Domi SimonJazmine, RN RN aa5 Suellen Dunham RN RN Marvin Butler 3 Deborah Mcgowan RN RN Robert Cummings RN RN ll1
[2019-07-08 19:01] VITALS: TEMP 98.9; O2SAT 97
[2019-07-08 19:03] VITALS: BP 115/82
--- NOTE | 2019-07-09 07:51 | EKG ---
Test Date: 2019-07-08 Test Time: 16:21:47 Respiratory Care Practitioner: BERNICE MEASUREMENT RESULTS: Intervals: Rate: 74 WV: 108 QRSD: 90 QT: 386 QTc: 428 [place]: P: 58 WV: 108 QRS: 38 T: 59 INTERPRETIVE STATEMENTS: Sinus rhythm with short [place] Nonspecific ST and T wave abnormality Abnormal ECG Compared to ECG 07/02/2017 15:40:38 Short WV interval now present ST (T wave) deviation now present Sinus tachycardia no longer present Electronically Signed On 07-09-19 07:33:13 CDT by Julio Dia
== END 2019-07-08 18:54 | disposition home or self-care (01) ==
LOC: ER 15:48
DX: E87.6 Hypokalemia (principal); I12.9 Hypertensive chronic kidney disease with stage 1 through stage 4 chronic kidney disease, or unspecified chronic kidney disease; E11.22 Type 2 diabetes mellitus with diabetic chronic kidney disease; N18.9 Chronic kidney disease, unspecified; Z79.82 Long term (current) use of aspirin
CPT/HCPCS: 96365; 93005; 80048; 36415; 84100; 99284; J7030